=== PATIENT | male | born 1950 | race Caucasian/White ===

== ENCOUNTER 2018-07-31 18:18 | Inpatient (IN) ==
[2018-07-31] MEDS ORDERED: CARDIZEM IV ONE ×3 (19:47→20:32)
[2018-07-31] MEDS ORDERED: ASPIRIN PR ONE (19:54)
[2018-07-31] MEDS ORDERED: NITROGLYCERIN TOP ONE (20:03)
[2018-07-31] MEDS ORDERED: LASIX IV ONE (20:04)
[2018-07-31 20:16] LABS: BASO# 0.04 X1000 (0.0-0.2); BASO% 0.3 % (0.0-0.8); EOS# 0.03 X1000 (0.0-0.7); EOS% 0.2 % (0.0-10.0); HEMATOCRIT 40.9 % (42.0-52.0); HEMOGLOBIN 13.6 g/dL (14.0-18.0); IMM GRAN# 0.13 X1000 (0.0-0.04); IMM GRAN% 0.8 % (0.0-0.5); LYMPH# 1.68 X1000 (1.2-3.4); LYMPH% 10.8 % (20.5-51.1); MCH 28.5 PG (27-31); MCHC 33.3 g/dL (33-37); MCV 85.6 FL (81-99); MONO# 0.25 X1000 (0.11-0.59); MONO% 1.6 % (1.7-9.3); NEUT# 13.43 X1000 (1.4-6.5); NEUT% 86.3 % (42.2-75.2); PLT 414 X1000 (130-400); RBC 4.78 XMIL (4.7-6.1); RDW 13.8 % (11.5-14.5); WBC 15.56 X1000 (4.8-10.8)
--- NOTE | 2018-07-31 20:23 | Diag Imaging Result Doc PS360 ---
CHEST-PORTABLE - 07/31/2018 INDICATION: respiratory distress COMPARISON: None FINDINGS: There is a left-sided dual-chamber pacemaker in good position. Lung volumes are severely low with central crowding. No infiltrates or edema. IMPRESSION: Severely low lung volumes. Electronically signed by Juancho Taylor 07/31/2018 8:21 PM
[2018-07-31 20:42] LABS: POTASSIUM 5.1 mmol/L (3.5-5.1)
[2018-07-31 20:43] LABS: ALB/GLOB RATIO 1.2; ALBUMIN 3.9 g/dL (3.5-5.0); CALCIUM 9.5 mg/dL (8.8-10.2); CREATININE 1.4 mg/dL (0.7-1.2); TOTAL BILIRUBIN 0.84 mg/dL (0.20-1.00); TOTAL PROTEIN 7.1 g/dL (6.3-8.3)
[2018-07-31 21:15] LABS: ALLEN TEST YES; BE 0.5 mmoll (-3.0-3.0); BLOOD TYPE ARTERIAL; HCO3-(ACT) 25.3 mmoll (20.0-26.0); METHB 0.7 % (0.0-1.5); O2(CT) 19.7 mL/dL (15.0-23.0); PCO2(98.6) 41 mmHg (35-45); PO2(98.6) 342 mmHg (60-100); SAMPLE BLOOD; SAO2 97.6 % (95.0-100.0); THB 13.8 g/dL (11.5-17.4)
[2018-07-31 21:16] LABS: MODALITY BI PAP
[2018-07-31] MEDS ORDERED: VANCOMYCIN 1 GM/NS 1 GM/250 ML IVPB IV ONE (21:47)
[2018-07-31 21:53] LABS: UR AMPHETAMINES QUAL NONE DETECTED (NONE DETECT); UR BARBITUATES QUAL NONE DETECTED (NONE DETECT); UR BENZODIAZEPIN QUAL NONE DETECTED (NONE DETECT); UR CANNABINOIDS QUAL NONE DETECTED (NONE DETECT); UR COCAINE QUAL NONE DETECTED (NONE DETECT); UR METHADONE QUAL NONE DETECTED (NONE DETECT); UR OPIATES QUAL PRESUMPTIVE POSITIVE (NONE DETECT); UR OXYCODONE QUAL NONE DETECTED (NONE DETECT); UR PCP QUAL PRESUMPTIVE POSITIVE (NONE DETECT)
[2018-07-31] MEDS ORDERED: NS 1,000 ML IV SCH (22:00)
[2018-07-31] MEDS ORDERED: LEVOPHED 8 MG in D5 1/2 NS 250 ML IV SCH (22:15)
[2018-07-31 22:43] LABS: URINE SOURCE CATH
[2018-07-31] MEDS ORDERED: NEO-SYNEPHRINE 50 MG in NS 250 ML IV SCH (22:45)
[2018-07-31 23:00] LABS: UR EPITHELIAL CELLS <10 /HPF (<10); URINE BACTERIA NEGATIVE /HPF; URINE RBC <10 /HPF (<10); URINE WBC <10 /HPF (<10)
[2018-07-31 23:28] LABS: BILIRUBIN URINE NEGATIVE (NEGATIVE); BLOOD URINE NEGATIVE (NEGATIVE); COLOR YELLOW; GLUCOSE URINE NEGATIVE (NEGATIVE); KETONE URINE NEGATIVE (NEGATIVE); LEUKOCYTES URINE NEGATIVE (NEGATIVE); NITRITE URINE NEGATIVE (NEGATIVE); PH URINE 5.5; PROTEIN URINE NEGATIVE (NEGATIVE); SP GRAVITY URINE 1.011; TURBIDITY URINE CLEAR (CLEAR); UROBILINOGEN URINE 2 mg/dL (NORMAL)
[2018-08-01] MEDS ORDERED: LEVAQUIN 500 MG/D5W 500 MG/100 ML IVPB IV SCH (00:03)
[2018-08-01] MEDS ORDERED: CARDIZEM 100 MG/NS 100 MG/100 ML IVPB IV SCH (00:03)
[2018-08-01] MEDS ORDERED: FLAGYL 500 MG/NS 500 MG/100 ML IVPB IV SCH (00:03)
[2018-08-01] MEDS: LANOXIN IV SCH ×3 (00:40→10:07)
[2018-08-01] MEDS: MERREM 1 GM in NS 50 ML IV SCH ×3 (02:41→17:17)
[2018-08-01] MEDS: CARDIZEM 125 MG/D5W 125 MG/125 ML IVPB IV SCH (02:41)
[2018-08-01] MEDS: NS 1,000 ML IV SCH ×2 (03:52→17:17)
--- NOTE | 2018-08-01 04:20 | HISTORY AND PHYSICAL ---
CHIEF COMPLAINT: Shortness of breath. HISTORY OF PRESENT ILLNESS: This is a 67-year-old gentleman, reported history of CHF and atrial fibrillation, on chronic Xarelto therapy, who comes from home with acute shortness of breath starting today. He has been doing well. He recently had a gallbladder surgery outpatient on 07/21, it was about 10 days ago, and had done well reportedly. Today, came in very short of breath, wheezing, low saturations, reportedly sats of 70% when he first came in on room air, that is what was reported. It says 93% though, but he had increased work of breathing. He had to be put on a BiPAP almost immediately. He is supposed to be on a BiPAP. No reported fevers, chills, or anything as an outpatient, but again, he does have chronic CHF. He is followed by Dr. Moe in [place]. No swelling in his legs. Also reports chest pain, but his cardiac workup is negative at this point. He is currently, when I saw him, on BiPAP and breathing a little bit more comfortably. He is tachycardic in the one-teens to 130s, I saw his high as 140, and chest x-ray was limited because of his tachypnea, did not show any gross infiltrates but was not super well penetrated, but in any case, he has a dual-chamber pacemaker, but it is not pacing or at least is not overdrive pacing. He is still tachycardic. Workup in the ER was otherwise unremarkable, except he did have some leukocytosis. He also complained of chest pain. The patient, treatment [place], initially he was a bit hypertensive and he was tachycardic, so he got 2 doses of Cardizem, 1 at 15, 1 at 20. He also got 40 of Lasix. When I was called to see him, he was still tachycardic, but now he was hypotensive. There is documented blood pressures that are in the 50s systolic. It was closer to high 80s, low 90s when I saw him, but he was still tachycardic, one-teens, 120s. Nitroglycerin I think was ordered but not administered. His blood gas actually looked okay, his PaO2 was 342, and that was on 100%. Creatinine 1.4, but it when it had been checked preop, it was 1.8, so I think he has got some chronic renal insufficiency. He was admitted for respiratory failure, atrial fibrillation with rapid ventricular response, and now developing shock, although possibly that may have been related to some of his medications. PAST MEDICAL HISTORY: 1. Again CHF. 2. Atrial fibrillation. 3. Gout. 4. Hyperlipidemia. 5. Steatohepatitis. He had a recent liver biopsy which did show periportal inflammation; however, it clearly did not describe cirrhosis, and his steatohepatitis was mild. 6. Chronic pain syndrome. 7. Hypothyroidism. 8. Anxiety, depression. 9. Type 2 diabetes, noninsulin dependent. PAST SURGICAL HISTORY: 1. He has had a recent cholecystectomy. 2. He has also had a biliary stent done in June, which is due to come out. FAMILY HISTORY: Reviewed and noncontributory, except father and brothers have had stroke. SOCIAL HISTORY: No tobacco or ethanol. ALLERGIES: Adhesive tape and amoxicillin. REVIEW OF SYSTEMS: Otherwise negative times a 10 point review of systems. PHYSICAL EXAMINATION: VITAL SIGNS: Blood pressure currently 91/45, heart rate of 115, respiratory rate of 23, temperature was afebrile, 98.1 degrees. GENERAL: A well-developed male in moderate distress associated with increased work of breathing. EYE: Pupils equal, round, reactive to light. Extraocular movements were intact. Sclerae are anicteric. EAR/NOSE/THROAT: Limited because of his BiPAP mask, but no lesions or dryness noted. CARDIOVASCULAR: Tachy and irregular. I could not appreciate murmurs, gallops, or rubs. PULMONARY: Bilateral breath sounds. No wheezing, no rales. GASTROINTESTINAL: Soft, nontender, protuberant. Bowel sounds were diminished throughout. His incisions looked clean, dry, intact. NEUROLOGIC: Nonfocal. MUSCULOSKELETAL: 5/5 in all 4 extremities. LYMPHATICS: He had only trace peripheral edema. LABORATORY DATA: White count up to 15, hemoglobin and hematocrit 13 and 40, platelets 414,000. Creatinine 1.4. ProBNP 2254. UDS positive opiates, positive phencyclidine, which I do not really get a sense he is a drug abuser. Chest x-ray was reportedly clear. ASSESSMENT: A 67-year-old male with history of congestive heart failure, atrial fibrillation, here with atrial fibrillation with rapid ventricular response, respiratory failure, and now to some degree shock. 1. Atrial fibrillation with rapid ventricular response. We will initiate digoxin and possibly some Cardizem if his blood pressure tolerates it, get echo, do a couple more serial enzymes. Get Cardiology opinion and follow. 2. Shock, which may be related to medications he has required. Could be developing sepsis. We will continue to monitor. I am reluctant to give him a lot of fluids considering he has some degree of failure at this point, but we have initiated Bertin-Synephrine and maintained his blood pressure, especially with the potential need for intravenous Cardizem. 3. Acute on chronic respiratory failure, likely multifactorial. I have pursued a chest CT. We have to give noncontrast. If we still need to rule out pulmonary embolism, we may want to consider ventilation/perfusion scan. I do not think a D-dimer is going to tell us very much in a postop patient, even though it has only been 10 days. He is also on Xarelto, which he has been taking, so I think that is less likely. We will also scan his abdomen just to make sure he does not have a postop bleed or any issues related to his surgery that could have induced these kinds of processes. 4. Diabetes. Follow blood sugars, sliding scale. Check an A1c and follow. CT scan shows pneumoperitoneum with concern over perforated viscus, he has a biliary stent; which is due to be removed and likely a developing abscess in the gallbladder fossa; will pace on antibiotics and I have called and consulted Dr Tran who is [employer] dean for Dr Quiroz concerning the case. He will likely need urgent surgical intervention. cc: MD Audelia Low MD Matthew L. Figh, MD MTDD
[2018-08-01] MEDS: MORPHINE IV PRN ×4 (04:33→23:43)
[2018-08-01 04:43] LABS: ALLEN TEST YES; BE -1.4 mmoll (-3.0-3.0); BLOOD TYPE ARTERIAL; HCO3-(ACT) 23.8 mmoll (20.0-26.0); METHB 0.6 % (0.0-1.5); O2(CT) 15.2 mL/dL (15.0-23.0); PCO2(98.6) 44 mmHg (35-45); PO2(98.6) 109 mmHg (60-100); SAMPLE BLOOD; THB 11.1 g/dL (11.5-17.4); pH(98.6) 7.35 (7.35-7.45)
[2018-08-01 04:44] LABS: MODALITY VENTIMASK
[2018-08-01 04:56] LABS: BASO# 0.05 X1000 (0.0-0.2); BASO% 0.3 % (0.0-0.8); EOS# 0.02 X1000 (0.0-0.7); EOS% 0.1 % (0.0-10.0); HEMATOCRIT 38.8 % (42.0-52.0); IMM GRAN# 0.09 X1000 (0.0-0.04); IMM GRAN% 0.5 % (0.0-0.5); LYMPH# 0.98 X1000 (1.2-3.4); LYMPH% 5.3 % (20.5-51.1); MCH 28.5 PG (27-31); MCHC 33.5 g/dL (33-37); MCV 85.1 FL (81-99); MONO# 1.34 X1000 (0.11-0.59); MONO% 7.3 % (1.7-9.3); MPV 12.2 FL (7.4-10.4); NEUT# 15.94 X1000 (1.4-6.5); NEUT% 86.5 % (42.2-75.2); PLT 323 X1000 (130-400); RBC 4.56 XMIL (4.7-6.1); RDW 13.7 % (11.5-14.5); WBC 18.42 X1000 (4.8-10.8)
[2018-08-01 05:08] LABS: HEMOGLOBIN A1C 8.3 % (4.8-6.0)
[2018-08-01 05:20] LABS: ALB/GLOB RATIO 0.8; CALCIUM 9.3 mg/dL (8.8-10.2); CREATININE 1.7 mg/dL (0.7-1.2); POTASSIUM 4.4 mmol/L (3.5-5.1); TOTAL BILIRUBIN 1.2 mg/dL (0.20-1.00); TOTAL PROTEIN 6.9 g/dL (6.3-8.3)
[2018-08-01 05:42] LABS: BANDS 10 % (0-1); LYMPHS 5 % (21-51); MONO 1 % (1-9); SEGS 83 % (42-75)
[2018-08-01] MEDS: HUMULIN R SUBQ SCH ×4 (06:17→22:47)
--- NOTE | 2018-08-01 08:05 | Diag Imaging Result Doc PS360 ---
CT ABD/PELVIS W/ORAL CONT ONLY - 07/31/2018 INDICATION: post-op sher/hypotension COMPARISON: 06/04/2018 FINDINGS: The patient is approximately 11 days status post cholecystectomy. Lung volumes are low with some patchy atelectasis or infiltrate bilaterally, right greater than left. There are pacemaker leads in the heart. Heart size is top normal with no pericardial effusion. There is some trace perihepatic free fluid. There is also trace peritoneal free air in the midline and around the liver. There is no free fluid in the pelvis. There certainly less than about 100 cc of free fluid. The common bile duct stent has migrated and is now mostly in the duodenum. There is some pneumobilia. No renal stones or obstruction. No bowel obstruction or inflammation. Chapin catheter in the urinary bladder. Prostate is very atrophic. Rectum is normal. There are bilateral fat-containing inguinal hernias. There are fusion changes of the lumbar spine. There are moderate degenerative changes of the spine. No acute or suspicious bony lesion. IMPRESSION: Indeterminate findings. Very small amount of free air and free fluid should not be present this long after the cholecystectomy. However the source is unclear at this point. The common bile duct stent has also migrated and is nearly completely out of the common duct, most is in the duodenum. The results were discussed with Dr. Gabo Tran on 08/01/2018 at 8:00 AM. This exam was performed using automated exposure control, adjustment of mA or kV according to patient size, and/or use of iterative reconstruction technique Electronically signed by Juancho Taylor 08/01/2018 8:03 AM
--- NOTE | 2018-08-01 08:08 | Diag Imaging Result Doc PS360 ---
CT THORAX W/O CONTRAST - 07/31/2018 INDICATION: lung mass COMPARISON: Prior chest x-ray FINDINGS: There is a left-sided dual-chamber pacemaker in good position. There is extremely dense coronary artery calcification of all of the coronary arteries. Heart size is top normal with no pericardial effusion. No adenopathy. Lung volumes are low. There is nonspecific bibasilar infiltrate or atelectasis right greater than left. No pneumothorax or pleural effusion. There are moderate degenerative changes of the spine. No acute or suspicious bony lesion. No pulmonary edema. IMPRESSION: Nonspecific findings. This exam was performed using automated exposure control, adjustment of mA or kV according to patient size, and/or use of iterative reconstruction technique Electronically signed by Juancho Taylor 08/01/2018 8:06 AM
[2018-08-01] MEDS: ASPIRIN EC PO SCH (08:53)
[2018-08-01] MEDS ORDERED: NS 50 ML ONE (09:24)
[2018-08-01] MEDS ORDERED: DILAUDID IV ONE (09:59)
[2018-08-01 10:19] LABS: ALB/GLOB RATIO 0.8; CALCIUM 8.9 mg/dL (8.8-10.2); CREATININE 1.7 mg/dL (0.7-1.2); POTASSIUM 4.9 mmol/L (3.5-5.1); TOTAL BILIRUBIN 1.28 mg/dL (0.20-1.00); TOTAL PROTEIN 6.7 g/dL (6.3-8.3)
--- NOTE | 2018-08-01 10:30 | GENERAL SURGERY CONSULTATION ---
DATE: 08/01/2018 HISTORY OF PRESENT ILLNESS: Mr. Echevarria is 67 with multiple medical problems, who is 11 days after a laparoscopic cholecystectomy and liver biopsy that was apparently uneventful. Yesterday he developed sudden onset of right upper quadrant pain. He was brought to the emergency department because of those symptoms. He was somewhat tachycardic and even hypertensive, was treated and brought his blood pressure down. Now his rate is controlled as well, but he continues to complain of right upper quadrant pain. A CT scan showed a little bit of fluid around his liver, some spots of free air, and some displacement of his common duct stent distally, even though some of it is still in the common duct. His white count was 15,000; it has gone up to 18,000 today. Continues to complain of right upper quadrant pain necessitating even pain medication. His lactate level has gone from 1.7 to 2.3, BUN up to 31, creatinine up to 1.7 which is a slight elevation. AST is down to 54, ALT is normal, alkaline phosphatase is normal at 109. PAST MEDICAL HISTORY: Pertinent for congestive heart failure, atrial fibrillation with rapid ventricular rate, hyperlipidemia, hypothyroidism, anxiety, depression, type 2 diabetes, and chronic pain syndrome. PAST SURGICAL HISTORY: Previous surgery includes the ERCP and stent placement in June and the cholecystectomy 11 days ago. FAMILY HISTORY: Pertinent for CVA. SOCIAL HISTORY: Denies tobacco, alcohol use. He is , has an attentive . MEDICATIONS: Listed. ALLERGIES: Allergies include Amoxil. REVIEW OF SYSTEMS: As noted above. PHYSICAL EXAMINATION: Vital Signs: Temperature is 99.2 degrees, heart rate 75, blood pressure 111/63. He has an O2 mask in place. Lungs: Bilateral breath sounds. Heart: Irregular rate and rhythm. Abdomen: Soft, but he is tender in the right upper quadrant. Laparoscopy wounds looked normal. Extremities/neurologic: No peripheral edema. He is awake and alert. ASSESSMENT: Acute onset of right upper quadrant pain yesterday. CT findings suggest some fluid around his liver, minimal fluid in his hepatic space, some droplets of free air. I will simply plan a diagnostic laparoscopy due to his change in clinical appearance and his white count. He already has a common duct stent in place, but might benefit from drainage if, in fact, there is a bile leak. We also look at his duodenum to look for possible perforated ulcer. I have discussed these things with he and his ; they understand and agree to proceed. cc: Gabo Tran MD
[2018-08-01] MEDS ORDERED: VANCOMYCIN IV PER PHARMACY MISC SCH (11:00)
[2018-08-01] MEDS ORDERED: LR 1,000 ML ONE (11:09)
[2018-08-01] MEDS ORDERED: MARCAINE 0.25% PF/EPI 1:200,000 ONE (11:09)
--- NOTE | 2018-08-01 11:15 | ECHO REPORT ---
ORDER DATE: 08/01/2018 INTERPRETING PHYSICIAN: Dr. Venkat Bassett ECHOCARDIOGRAPHIC MEASUREMENTS: 1. Interventricular septum: 1.3 cm. 2. Posterior wall: 1.2 cm. 3. Diastolic diameter: 4.0 cm. 4. Left atrium: 5.2 cm. 5. Aortic root: 3 cm. SUMMARY OF THE 2-DIMENSIONAL IMAGIN. Technically suboptimal study. Poor acoustic window. 2. Pacing leads are noted in the right chamber. 3. Aortic valve leaflets were trileaflet, calcified. 4. Mitral valve was normal. Mitral annular calcification noted. 5. Tricuspid valve was normal. 6. Pulmonic valve not well visualized. 7. There is left atrial enlargement, severe. 8. There is mild mitral regurgitation. 9. Mild tricuspid regurgitation. Peak velocity across the tricuspid valve less than 2 m/sec. 10. Peak velocity across the aortic valve was 4.5 m/sec with a peak gradient of 81 mmHg and mean gradient of 50 mm Hg. By VTI, aortic valve area of 0.8 cm2. There is severe aortic stenosis associated with mild aortic regurgitation. 11. I would recommend transesophageal echocardiogram to evaluate the aortic valve. 12. Definity was used to assess left ventricular systolic function. Normal left ventricular cavity size. Concentric left ventricular hypertrophy. Estimated ejection fraction 60 to 65 percent. 13. There is no pericardial effusion or obvious intracardiac mass or thrombus seen. cc: MD Dimitry Painter MD
[2018-08-01] MEDS ORDERED: AMIDATE ONE (12:14)
[2018-08-01] MEDS ORDERED: QUELICIN (DOSE) ONE (12:14)
[2018-08-01] MEDS ORDERED: NORCURON ONE (12:14)
[2018-08-01] MEDS ORDERED: ROBINUL ONE (12:25)
[2018-08-01] MEDS ORDERED: NEOSTIGMINE ONE (12:26)
[2018-08-01] MEDS ORDERED: DILAUDID ONE (12:32)
[2018-08-01] MEDS: DIPRIVAN 1% 1,000 MG/100 ML BOTTLE IV SCH ×3 (13:30→23:31)
--- NOTE | 2018-08-01 13:56 | Diag Imaging Result Doc PS360 ---
CHEST-PORTABLE - 08/01/2018 INDICATION: et placement COMPARISON: 07/31/2018 FINDINGS: There is an endotracheal tube in good position at T2. Lung volumes remain low. No infiltrates or edema. Heart size remains normal. IMPRESSION: Good endotracheal tube placement. Low lung volumes. Electronically signed by Juancho Taylor 08/01/2018 1:53 PM
[2018-08-01 14:29] LABS: ALLEN TEST YES; BE -2.8 mmoll (-3.0-3.0); BLOOD TYPE ARTERIAL; HCO3-(ACT) 22.7 mmoll (20.0-26.0); METHB 0.8 % (0.0-1.5); O2(CT) 16.9 mL/dL (15.0-23.0); O2HB 95.7 % (95.0-99.0); PCO2(98.6) 47 mmHg (35-45); PO2(98.6) 116 mmHg (60-100); SAMPLE BLOOD; SRATE 12 BPM; THB 12.4 g/dL (11.5-17.4); TVOL 500 mL; pH(98.6) 7.31 (7.35-7.45)
[2018-08-01 14:32] LABS: MODALITY VENTILATOR
--- NOTE | 2018-08-01 14:44 | CARDIOLOGY CONSULTATION ---
DATE: 08/01/2018 HISTORY OF PRESENT ILLNESS: Mr. Echevarria is a 67-year-old gentleman who was admitted, is intubated, underwent surgery, a laparoscopic gallbladder surgery, had abscess, and the patient is intubated at the present time. History was obtained from the chart. The patient, 11 days back, had laparoscopic cholecystectomy and liver biopsy. He came in with right upper quadrant pain, was brought to the emergency room. CT scan showed fluid around his liver with free spots of air and patient was taken to surgery. The rest of the history was also obtained from discussing with patient's . Prior to these episodes, from a cardiac standpoint, patient has followed up in our office in [place], did not have any cardiac symptoms per se of chest pain. His chronic cardiac issues have been stable. PAST MEDICAL HISTORY: 1. Aortic stenosis. 2. Atrial fibrillation. 3. Hyperlipidemia. 4. Hypothyroidism. 5. Diabetes. 6. Depression. 7. Chronic pain. 8. Chronic renal insufficiency. 9. Recent ERCP and stent placement in June and cholecystectomy 11 days back. REVIEW OF SYSTEMS: Could not be obtained from the patient. ALLERGIES: Patient is allergic to Amoxil. MEDICATIONS AT HOME: Included: 1. Fenofibrate 160. 2. Losartan 25. 3. Amlodipine 10. 4. Metoprolol extended release 100. 5. Meclizine. 6. Gabapentin 400 p.o. b.i.d. 7. Atorvastatin 40. 8. Tradjenta 5. 9. Lasix 40 a day. 10. Allopurinol 100. 11. Levothyroxine. 12. Xarelto 15. PHYSICAL EXAMINATION: Vital signs: Blood pressure 97/61. Neck: Jugular venous pressure could not be assessed. Cardiovascular system: First and second heart sounds were heard. There was ejection systolic murmur. Respiratory System: Normal air entry. Abdomen: Recent surgery. Central nervous System: Could not be assessed. LABORATORY EXAMINATION: WBC 18.42, hemoglobin 13.0, hematocrit 38, platelet count of 323,000. Chemistry: Sodium 134, potassium 4.9, BUN 35, creatinine 1.7. Cardiac enzymes negative. IMAGING: Chest CT. Dual-chamber pacemaker, calcification in the coronary arteries, otherwise no significant abnormality. Chest x-ray, low lung volumes. ASSESSMENT AND PLAN: 1. Mr. Jorge A Echevarria is a 67-year-old gentleman with history of coronary artery disease status post stent placement in the past, aortic stenosis, permanent pacemaker, atrial fibrillation, hypertension, diabetes, underwent cholecystectomy laparoscopic and underwent emergent surgery for an abscess in the abdomen. From a cardiac standpoint, he has severe aortic stenosis, associated with mild aortic regurgitation. Please see detailed echocardiogram report. 2. He has atrial fibrillation, has been on Xarelto for stroke prophylaxis. 3. He has chronic renal insufficiency, followed by Nephrology in [place]. He was last seen in their office in January in [place]. Per patient's family, his cardiac status was stable. He has not had any chest pains, no syncope or no worsening shortness of breath or heart failure. The patient is currently stable from a cardiac standpoint. We will follow hospital course. He underwent recent surgery, is intubated. We will reinstitute his oral medications once he is extubated. Given his recent surgery, we will restart his home medications except anticoagulation therapy given his recent surgery. Thank you for the consult. We will follow hospital course. cc: Venkat Bassett MD [facility]
--- NOTE | 2018-08-01 15:04 | PROGRESS NOTE ---
DATE: 08/01/2018 SUBJECTIVE: Mr. Echevarria was seen this morning in the ICU bed. He refers to be hurting a lot in the abdomen. Briefly Mr. Echevarria had is a CBD stent placement on 06/21/[address] Roth. Because of the dilated CBD, elevated liver enzymes, was found to have a stricture the distal common bile duct. He also had a laparoscopic cholecystectomy on 07/21/[address] Quiroz. During that surgery, a laparoscopic wedge resection of segment 4 of the liver was also done. I understand he was doing fairly okay until yesterday he had this acute onset of abdominal pain, came to the emergency department where he was evaluated. A CT scan of the abdomen did reveal small amount of free air and free fluid. Free fluid was found at the cholecystectomy site and that the common bile duct stent had migrated to the duodenum. Surgery has been consulted and there is a plan for an exploratory laparotomy today. A CT scan of the lungs shows nonspecific bibasilar infiltrate or atelectasis, right is greater than the left. OBJECTIVE: Vital signs: Blood pressure is currently 111/63, pulse of 75, respiration is 27, temperature is 99.2 degrees. General: Mr. Echevarria is a 67-year-old male. He is in bed. He is not in any cardiopulmonary distress. HEENT: Mucosa is pink and moist. Anicteric. Acyanotic. Neck: Neck is supple. Respiratory: Air entry is bilaterally reduced. There is a few crackles in the posterior lung ferguson. Cardiovascular: Regular rate. No murmurs, no rubs, no gallops. GI: Abdomen is soft, is distended. It is tender everywhere. There is rebound and guarding in the entire abdominal wall. Extremities: No pedal edema. SUPERVISOR SAMPLE: Patient is awake, alert, and oriented. IMAGING STUDIES: Have already been reviewed. An EKG on admission did showed atrial fibrillation with rate control, left axis deviation. ASSESSMENT: 1. Acute abdomen with CT scan referring to some air and fluid. There is concern for bile chemical peritonitis or any other intra-abdominal perforated viscus. Surgery is taking the patient to OR for exploratory laparotomy. 2. Migrated common bile duct stent. This will also be evaluated during surgery and gastroenterology will be consulted as well. 3. Acute on chronic respiratory failure. CT scan does show some bibasilar infiltrate in the right side could be concerning for pneumonia. Patient is currently on meropenem. We will add also vancomycin at renal dose. 2. Chronic kidney disease stage IIIB noted. Creatinine is stable. 3. Atrial fibrillation with rapid ventricular response on presentation. This is controlled. 4. Shock, presumably septic, drug-induced and also atrial fibrillation rapid ventricular response contributing to low perfusion. The patient is currently on IV antibiotics and gentle hydration. Blood pressure has improved. 5. Chronic liver disease, likely steatohepatitis. 6. Diabetes mellitus controlled. So in general Mr. Echevarria will be going for exploratory laparotomy today. Blood pressures have stabilized as well as the pulse. He looks clinically stable. The patient is being seen also by Pulmonary Medicine and Cardiology. cc: Dale Pack MD MTDD
--- NOTE | 2018-08-01 15:29 | PROVIDER DOCUMENTATION ---
This chart was entered by Norah Montez Scribe, acting as scribe for Ba Macias MD. HPI-Chest Pain - General Chief Complaint: Post Op Complaint Stated Complaint: POST OP GB SURG X 2 WEEKS, PAIN IN CHEST, BACK Time Seen by Provider: 07/31/18 19:41 Allergies/Adverse Reactions: Patient Allergies Allergy/AdvReac Type Severity Reaction Status Date / Time adhesive tape Allergy RASH Verified 07/19/18 11:16 amoxicillin Allergy jerking Verified 07/19/18 11:16 motion Home Medications: Home Medication List Medication Instructions Recorded Confirmed Last Taken Type ATORVAstatin [Lipitor] 40 mg PO QHS 10/17/15 08/01/18 07/20/18 22:00 History 40 Amlodipine Besylate 10 mg PO QAM 10/17/15 08/01/18 07/21/18 04:30 History 10 Fenofibrate 160 mg PO QAM 10/17/15 08/01/18 07/20/18 08:00 History 160 Furosemide [Lasix] 40 mg PO DAILY 10/17/15 08/01/18 07/20/18 08:00 History 40 Gabapentin 600 mg PO BID 10/17/15 08/01/18 07/20/18 22:00 History 600 Linagliptin [Tradjenta] 5 mg PO DAILY 10/17/15 08/01/18 07/20/18 08:00 History 5 Losartan [Cozaar] 25 mg PO QAM 10/17/15 08/01/18 07/20/18 08:00 History 25 Meclizine [Antivert] 25 mg PO HS 10/17/15 08/01/18 07/20/18 22:00 History 25 Metoprolol Succinate E.r. [Toprol 100 mg PO BID 10/17/15 08/01/18 07/21/18 04:30 History Xl] 100 Morphine E.r. [Ms Contin] 60 mg PO Q8H PRN 10/17/15 08/01/18 07/20/18 08:00 History 60 Allopurinol 100 mg PO QHS 06/16/18 08/01/18 07/20/18 22:00 History 100 Levothyroxine Sodium [Synthroid] 50 mcg PO QAM 06/16/18 08/01/18 07/20/18 22:00 History 50 Oxycodone HCl 30 mg PO DAILY PRN 06/16/18 08/01/18 07/20/18 08:00 History 30 Rivaroxaban [Xarelto] 15 mg PO QAM 06/16/18 08/01/18 07/15/18 History 15 Venlafaxine HCl [Venlafaxine HCl 1 dose PO DIRECTED 06/16/18 08/01/18 05/ 22:00 History ER] 1 - History of Present Illness-CP Nature of Presenting Problem: pt is a 67 yr old male presenting with left chest pain radiating into left arm, shortness of breath, sweating, irritable and anxious, onset 5 PM. pt recent hx of cholecystectomy 2 weeks prior, cardiac stents x 5, IDDM, Afib. Hx mostly from since pt in moderate distress and hard to focus. charge nurse Be said his SPO2 was in 70s on RA. Location: reports: substernal Chest Pain Radiation: reports: arms (left), back Severity in ED: moderate Onset/Duration: this afternoon (1200) Timing: still present Context/Activities at Onset: reports: light activity Modifying Factors: improves with: nothing Associated Symptoms: reports: back pain, fatigue, nausea, shortness of breath. denies: dizziness, edema, fever/chills, vomiting Nitro Today/Relief: provided by ED Aspirin Treatment Today: 325 mg x 1, provided by ED Similar Symptoms Previously?: Yes Recently Seen Here or By Another Healthcare Provider: Yes Review of Systems - Adult - REVIEW OF SYSTEMS - ADULT Constitutional: denies: chills, fever Cardiovascular: reports: chest pain, irregular heart rate. denies: syncope Respiratory: reports: shortness of breath. denies: cough, wheezing Gastrointestinal: reports: nausea. denies: vomiting Genitourinary: reports: no symptoms reported Musculoskeletal: reports: back pain Neurological: denies: dizziness/vertigo, headache/migraines, syncope Psychiatric: reports: anxiety Endocrine: reports: no symptoms reported Hematologic/Lymphatic: reports: no symptoms reported Past History - Adult - PAST MEDICAL HISTORY-ADULT Review of Records: reports: Old Records Reviewed, Nursing Assessment Review, Medications Reviewed, Social history reviewed & non-contributory. Major Childhood Illnesses: reports: denies history Cardiovascular: reports: A-Fib, CHF, HTN, hyperlipidemia, pacemaker Respiratory: reports: COPD Gastrointestinal: reports: cholelithiasis, GERD Obstetrical/Gynecological: reports: denies history Genitourinary: reports: kidney disease, kidney stones, erectile dysfunction Musculoskeletal: reports: chronic pain, intervertebral disc disease, neck/back injury Neurological: reports: denies history Psychiatric: reports: denies history Endocrine/Immune: reports: Diabetes Other Conditions: reports: denies history - PRIOR SURGERIES/PROCEDURES Surgical/Procedure History: reports: cholecystectomy, cardiac stent (x5), pacemaker - IMMUNIZATION STATUS Childhood Immunizations: See Nurse Assessment Flu Vaccine: See Nurse Assessment - FAMILY HISTORY Family History: reviewed, not pertinent - SOCIAL HISTORY Smoking: non-smoker Substance Use: denies Living Situation: family Physical Exam-General - PHYSICAL EXAM-ADULT Initial Vital Signs Reviewed: Yes - CONSTITUTIONAL General Appearance: moderate distress, obese - EYES Eyes: PERRL/EOMI - HEAD, EARS, NOSE, MOUTH & THROAT HENMT: moist mucous membranes, normal ENT inspection - NECK Neck: full range of motion, supple, normal inspection - RESPIRATORY Respiratory: respiratory distress, crackles (fine crackles bilateral bases), increased rate. negative: wheezing - CARDIOVASCULAR Cardiovascular: tachycardia, irregularly irregular, other (97% on non rebreather) - GASTROINTESTINAL (ABDOMEN) Abdominal Exam: non tender, soft - LYMPHATIC Lymphatic: no adenopathy - MUSCULOSKELETAL Back Exam: normal inspection Extremity: normal range of motion - SKIN Integumentary: normal color, normal turgor, warm/dry - PSYCHIATRIC Psych/Mental Status: anxious, other (confused) - HEART Score HEART Score: History: Moderately Suspicious HEART Score: ECG: Non-Specific Repolarization Disturbance/LBBB/PM HEART Score: Age: > or = 65 Years HEART Score: Risk Factors for Atherosclerotic Disease: > or = 3 Risk Factors or History of Atherosclerotic Disease HEART Score: Troponin: < or = Normal Limit Total HEART Score:: 6 Progress - PLAN OF CARE/RESULTS Progress/Plan/Lab Results: Laboratory Results - last 24 hr 07/31/18 07/31/18 07/31/18 19:48 19:48 19:48 WBC 15.56 H RBC 4.78 Hgb 13.6 L Hct 40.9 L MCV 85.6 MCH 28.5 MCHC 33.3 RDW Std Deviation 13.8 Plt Count 414 H MPV 12.0 H Immature Gran % (Auto) 0.8 H Neut % (Auto) 86.3 H Lymph % (Auto) 10.8 L Glascock % (Auto) 1.6 L Eos % (Auto) 0.2 Baso % (Auto) 0.3 Immature Gran # (Auto) 0.13 H Neut # (Auto) 13.43 H Lymph # (Auto) 1.68 Glascock # (Auto) 0.25 Eos # (Auto) 0.03 Baso # (Auto) 0.04 Specimen Type Sample Site pH pCO2 pO2 HCO3 Base Excess Oxyhemoglobin ABG O2 Sat (Calculated) ABG O2 Saturation ABG Carboxyhemoglobin ABG Methemoglobin Sridhar Test A-a O2 Difference Total Hemoglobin Lactate Blood Gas Modality Vent Mode FiO2 % Inspiratory BiPAP Expiratory BiPAP Sodium 134 L Potassium 5.1 Chloride 93 L Carbon Dioxide 25 Anion Gap 16 BUN 25 H Creatinine 1.4 H Estimated GFR/1.73 m2 51 BUN/Creatinine Ratio 18 Glucose 183 H POC Glucose Calculated Osmolality 277 Calcium 9.5 Total Bilirubin 0.84 AST 77 H ALT 40 Alkaline Phosphatase 157 H Troponin T < 0.010 [id number] Pept Total Protein 7.1 Albumin 3.9 Globulin 3.2 Albumin/Globulin Ratio 1.2 Plasma Lactate Urine Source Urine Color Urine Turbidity Urine pH Ur Specific Felt Urine Protein Ur Glucose (Stick) Ur Ketones (Stick) Urine Blood Urine Nitrite Urine Bilirubin Urobilinogen Dipstick Urine Leukocytes Urine WBC (Auto) Urine RBC (Auto) U Epithel Cells (Auto) Urine Bacteria (Auto) Urine Opiates Screen Ur Oxycodone Screen Ur Methadone, Qual Ur Barbiturates Screen Ur Phencyclidine Scrn Ur Amphetamines Screen U Benzodiazepines Scrn Urine Cocaine Screen U Cannabinoids Screen 07/31/18 07/31/18 07/31/18 19:48 19:48 20:13 WBC RBC Hgb Hct MCV MCH MCHC RDW Std Deviation Plt Count MPV Immature Gran % (Auto) Neut % (Auto) Lymph % (Auto) Glascock % (Auto) Eos % (Auto) Baso % (Auto) Immature Gran # (Auto) Neut # (Auto) Lymph # (Auto) Glascock # (Auto) Eos # (Auto) Baso # (Auto) Specimen Type Sample Site pH pCO2 pO2 HCO3 Base Excess Oxyhemoglobin ABG O2 Sat (Calculated) ABG O2 Saturation ABG Carboxyhemoglobin ABG Methemoglobin Sridhar Test A-a O2 Difference Total Hemoglobin Lactate Blood Gas Modality Vent Mode FiO2 % Inspiratory BiPAP Expiratory BiPAP Sodium Potassium Chloride Carbon Dioxide Anion Gap BUN Creatinine Estimated GFR/1.73 m2 BUN/Creatinine Ratio Glucose POC Glucose 166 H Calculated Osmolality Calcium Total Bilirubin AST ALT Alkaline Phosphatase Troponin T [id number] Pept 2254 H Total Protein Albumin Globulin Albumin/Globulin Ratio Plasma Lactate 2.8 H Urine Source Urine Color Urine Turbidity Urine pH Ur Specific Felt Urine Protein Ur Glucose (Stick) Ur Ketones (Stick) Urine Blood Urine Nitrite Urine Bilirubin Urobilinogen Dipstick Urine Leukocytes Urine WBC (Auto) Urine RBC (Auto) U Epithel Cells (Auto) Urine Bacteria (Auto) Urine Opiates Screen Ur Oxycodone Screen Ur Methadone, Qual Ur Barbiturates Screen Ur Phencyclidine Scrn Ur Amphetamines Screen U Benzodiazepines Scrn Urine Cocaine Screen U Cannabinoids Screen 07/31/18 07/31/18 07/31/18 21:00 21:22 21:22 WBC RBC Hgb Hct MCV MCH MCHC RDW Std Deviation Plt Count MPV Immature Gran % (Auto) Neut % (Auto) Lymph % (Auto) Glascock % (Auto) Eos % (Auto) Baso % (Auto) Immature Gran # (Auto) Neut # (Auto) Lymph # (Auto) Glascock # (Auto) Eos # (Auto) Baso # (Auto) Specimen Type ARTERIAL Sample Site R RADIAL pH 7.40 pCO2 41 pO2 342 H HCO3 25.3 Base Excess 0.5 Oxyhemoglobin 97.0 ABG O2 Sat (Calculated) 19.7 ABG O2 Saturation 97.6 ABG Carboxyhemoglobin 0.00 L ABG Methemoglobin 0.7 Sridhar Test YES A-a O2 Difference 320.0 Total Hemoglobin 13.8 Lactate 1.70 Blood Gas Modality BI PAP Vent Mode BIPAP FiO2 % 100.0 Inspiratory BiPAP 16.0 Expiratory BiPAP 6.0 Sodium Potassium Chloride Carbon Dioxide Anion Gap BUN Creatinine Estimated GFR/1.73 m2 BUN/Creatinine Ratio Glucose POC Glucose Calculated Osmolality Calcium Total Bilirubin AST ALT Alkaline Phosphatase Troponin T Ztm-R-Dumqfstsfic Pept Total Protein Albumin Globulin Albumin/Globulin Ratio Plasma Lactate Urine Source CATH Urine Color YELLOW Urine Turbidity CLEAR Urine pH 5.5 Ur Specific Felt 1.011 Urine Protein NEGATIVE Ur Glucose (Stick) NEGATIVE Ur Ketones (Stick) NEGATIVE Urine Blood NEGATIVE Urine Nitrite NEGATIVE Urine Bilirubin NEGATIVE Urobilinogen Dipstick 2 A Urine Leukocytes NEGATIVE Urine WBC (Auto) <10 Urine RBC (Auto) <10 U Epithel Cells (Auto) <10 Urine Bacteria (Auto) NEGATIVE Urine Opiates Screen PRESUMPTIVE POSITIVE A Ur Oxycodone Screen NONE DETECTED Ur Methadone, Qual NONE DETECTED Ur Barbiturates Screen NONE DETECTED Ur Phencyclidine Scrn PRESUMPTIVE POSITIVE A Ur Amphetamines Screen NONE DETECTED U Benzodiazepines Scrn NONE DETECTED Urine Cocaine Screen NONE DETECTED U Cannabinoids Screen NONE DETECTED Orders Category Date Time Status Admit - [facility] Routine AdmDCTranf 08/01/18 00:03 Active Activity - Up with Assistance ORDERED Care 08/01/18 00:03 Active Call Provider ROUTINE Care 07/31/18 23:05 Active Intake and Output-Strict ORDERED Care 08/01/18 00:03 Active Nursing- MD Consult Request ROUTINE Care 08/01/18 00:03 Completed Vital Signs Order Q 4-HR ASSESS Care 08/01/18 00:03 Active Z-Document. for Tele Applied ORDERED Care 08/01/18 00:03 Completed MD [Physician/Provider Consults] Routine Cons 08/01/18 00:[address] ABD/PELVIS W/ORAL CONT ONLY [CT] Routine Exams 07/31/18 22:[address] THORAX W/O CONTRAST [CT] Routine Exams 07/31/18 22:54 Completed cxr [CHEST-PORTABLE] [RAD] Stat Exams 07/31/18 19:46 Completed ABG [RESP] Routine Lab 07/31/18 21:00 Completed BLOOD CULTURE [BLDCUL] Stat Lab 07/31/18 19:48 Results BNP [PRO B-NATRIURETIC PEPTIDE] Stat Lab 07/31/18 19:48 Completed CBC WITH DIFF [HEME] Routine Lab 08/01/18 04:49 Completed CBC WITH ELECTRONIC DIFF [HEME] Stat Lab 07/31/18 19:48 Completed CMP [COMPREHENSIVE METABOLIC PANEL] [CHEM] Stat Lab 07/31/18 19:48 Completed COMPREHENSIVE METABOLIC PANEL [CHEM] Routine Lab 08/01/18 04:49 Completed LACTATE, PLASMA [CHEM] Stat Lab 07/31/18 19:48 Completed TROPONIN T Stat Lab 07/31/18 19:48 Completed TSH Routine Lab 08/01/18 04:49 Completed URINALYSIS W/POSS RFLX CULT [URINALYSIS] Stat Lab 07/31/18 21:22 Completed URINE DRUG SCREEN Stat Lab 07/31/18 21:22 Completed 0.9% Sodium Chloride Inj [Ns] 1,000 ml Med 07/31/18 22:00 Discontinued IV 300 mls/hr 0.9% Sodium Chloride Inj [Ns] 250 ml Med 07/31/18 22:45 Active Phenylephrine [Bertin-Synephrine] 50 mg IV As Directed mls/hr Aspirin Med 07/31/18 19:54 Discontinued 300 mg HI NOW ONE Dextrose 5%-0.45% NaCl Inj [D5 1/2 Ns] 250 ml Med 07/31/18 22:15 Discontinued Norepinephrine [Levophed] 8 mg IV As Directed mls/hr Digoxin [Lanoxin] Med 07/31/18 23:00 Discontinued 250 microgm IV Q6H Diltiazem 100 mg/Ns [Cardizem 100 mg/Ns] Med 08/01/18 00:03 Discontinued 100 mg in 100 ml IV As Directed mls/hr Diltiazem [Cardizem] Med 07/31/18 19:47 Discontinued 15 mg IV NOW ONE Diltiazem [Cardizem] Med 07/31/18 19:53 Discontinued 15 mg IV NOW ONE Diltiazem [Cardizem] Med 07/31/18 20:32 Discontinued 20 mg IV NOW ONE Furosemide [Lasix] Med 07/31/18 20:04 Discontinued 40 mg IV NOW ONE Nitroglycerin Med 07/31/18 20:03 Discontinued 1 inch TOP NOW ONE Vancomycin 1 gm/Ns Med 07/31/18 21:47 Discontinued 1 gm in 250 ml IV NOW BIPAP Stat Oth 07/31/18 20:04 Active Telemetry [OM.EQ] Routine Oth 08/01/18 00:03 Active EKG [EKG] Stat Ther 07/31/18 19:47 Ordered Transfer/Admit Order [TRANSFER] Routine Transfer 07/31/18 22:40 Completed Patient in respiratory distress, Bipap ordered and pt improved. initially he was slightly confused but Mental status improved with Bipap. chest pain with the cardiac Hx is suspicious for cardiac event Aspirin ordered. A fiv with RVR could cause this but his HR improved to 90s to early 100 after 2 doses of cardizem. pt with elevated WBC and Lactate no source of infection identified for now, I started pt on Vanc and gentle fluid. I reassessed pt Multiple times throughout the ER stay and pt was improving clinically. BP dropped to 90s/50s-60s likely from Cardizem Dr. Ayala request to start NE. Pt care, assessment and plan discussed with the attending physician Dr. Graves and she agree with the plan as documented. Pt aslo seen and examined by Dr. Graves. Result Diagrams: 08/01/18 04:49 08/01/18 09:38 - REASSESSMENT Reassessment #1 Time Reassessed: 20:16 Status: unchanged Reassessment #2 Time Reassessed: 20:35 Status: unchanged Reassessment #3 Time Reassessed: 20:51 Status: improving (with Bipap) Reassessment #4 Time Reassessed: 21:21 Status: improving (With Bipap) - EKG 1 Time of EKG reading by physician:: 19:00 EKG Read and Signed by:: Ba Will EKG Interpretation (*Must complete 3 of following elements*): Abnormal (anterior infarct-age undetermined) Rate: 101 Rhythm: afib with RVR [place]: left - XRAY 1 XRAY Study: Chest Impression: Abnormal ( CHEST-PORTABLE - 07/31/2018 INDICATION: respiratory distress COMPARISON: None FINDINGS: There is a left-sided dual-chamber pacemaker in good position. Lung volumes are severely low with central crowding. No infiltrates or edema. IMPRESSION: Severely low lung volumes. Electronically signed by Juancho Taylor 07/31/2018 8:21 PM 07/31/182020 Interpreting Physician: Juancho Taylor MD Dictated Date/Time: 07/31/182019 cc: Ba Will MD; Audelia Newman MD) Comparison with other Films: no prior study - CONSULTS/PCP/HOSPITALIST Notification #1 *Consult/PCP/Hospitalist*: Dr. Ayala Time Discussed: 22:01 Consult Disposition: Admit (Hx, PE and pt care discussed with Dr. Ayala in the ER. Dr. Ayala request NE drip due to low BP 90s/late 50s.) Departure - Departure Date of Disposition Decision: 07/31/18 Time of Disposition Decision: 22:11 DIAGNOSIS: Atrial fibrillation with RVR Chest pain Qualifiers: Chest pain type: unspecified Qualified Code(s): R07.9 - Chest pain, unspecified Respiratory failure Qualifiers: Chronicity: acute on chronic Respiratory failure complication: hypoxia Qualified Code(s): J96.21 - Acute and chronic respiratory failure with hypoxia Disposition: ADMITTED INPATIENT 09 Certified Medical Emergency: Emergent Condition: Critical - Critical Care Note This patient required my direct & personal management of CC.: Yes Total Time (mins): 60 Critical Care Statement: This patient required my direct personal management to treat or rule out processes, the absence of which, could potentiallly result in sudden, clinically significant life or limb threatening deterioration. Attestation - Physician/ JW Attestation Patient care was provided by Advanced Practice Provider:: No The physician spent face to face time with patient:: Yes Advanced Practice Provider documentation review:: Supervising physician onsite and consulted in the evaluation and care of this patient. The physician did have a face to face encounter with the patient. This chart was documented by the indicated scribe, (Norah Montez Scribe) and accurately reflects the services I performed and decisions made by me, Ba Will MD, as attested by the provider's signature.
[2018-08-01] MEDS ORDERED: NS 1,000 ML IV ONE (17:01)
[2018-08-01] MEDS ORDERED: VANCOMYCIN 1,500 MG in NS 250 ML IV SCH (18:00)
--- NOTE | 2018-08-01 18:50 | PULMONOLOGY CONSULTATION ---
DATE: 08/01/2018 REASON FOR CONSULTATION: Respiratory failure. HISTORY OF PRESENT ILLNESS: Mr. Echevarria is a 67-year-old white male, never smoker, who underwent a stent placement in his common bile duct approximately 3 weeks ago followed by a cholecystectomy 07/21/2018. The patient's reports he did well following that procedure but prior to coming to the emergency room developed acute abdominal pain and increased work of breathing. He presented to the emergency room for additional evaluation and management. Chest x-ray revealed shallow inspiration without definite infiltrates. CT scan of the abdomen and pelvis was performed which revealed free air in the midline and around the liver along with some pneumobilia. Previous stent had migrated nearly completely out of the common bile duct into the duodenum. CT scan of the thorax was performed which revealed low lung volumes along with bibasilar atelectasis/infiltrate right greater than left. He has been evaluated by General Surgery and exploratory laparoscopy is planned today. PAST MEDICAL HISTORY: 1. Coronary artery disease with prior stenting x4. 2. Status post biliary stent as per above. 3. Steatohepatitis. 4. Atrial fibrillation. 5. Status post pacemaker placement. 6. Severe aortic stenosis. 7. Recent cholecystectomy as per above. 8. Atrial fibrillation. 9. Hypothyroidism. 10. Chronic pain syndrome. 11. Obesity. 12. Type 2 diabetes mellitus. 13. Chronic renal insufficiency. SOCIAL HISTORY: The patient is a never smoker. No alcohol use listed. FAMILY HISTORY: Positive for strokes. REVIEW OF SYSTEMS: As noted in the HPI but is otherwise negative. PHYSICAL EXAMINATION: General: Reveals a obese white male currently resting comfortably on Venturi mask. Blood pressure 97/61, heart rate 85, respiratory rate 28 and shallow, oxygen saturation 96%. He has been afebrile during this hospitalization. HEENT: Pupils are equal and reactive. Oropharynx is clear. Neck: Supple. Chest: Reveals shallow breath sounds bilaterally with bibasilar crackles. Cardiac: Irregular, irregular rhythm. Abdomen: Mildly distended. He is tender to palpation and percussion with some guarding noted. Extremities: Without edema. LABORATORIES: Arterial blood gas this morning on 50% face mask, pH 7.35, pCO2 of 44, PO2 of 109. Sodium 134, potassium 4.9, chloride 96, bicarbonate 21, BUN 35, creatinine 1.7. White blood count 18.4 thousand, hemoglobin 13.0, platelet count 323,000. IMPRESSION: 67-year-old never smoker with 1. Acute hypoxemic respiratory failure. 2. Bibasilar atelectasis. 3. Acute abdomen with splinting. 4. Leukocytosis. 5. Chronic renal insufficiency. 6. Obesity. 7. Diabetes mellitus. RECOMMENDATIONS: 1. Agree with current antibiotic regimen. Although basilar infiltrates may be atelectasis, cannot completely rule out a pneumonia. Current antibiotic regimen should be adequate. 2. Continue oxygen for hypoxemic respiratory failure. 3. Continue pain control. 4. Initiate incentive spirometry. 5. Anticipate laparoscopy today. cc: Zi Duarte MD
--- NOTE | 2018-08-01 20:27 | OPERATIVE NOTE ---
PROCEDURE DATE: 08/01/2018 PROCEDURE: 1. Diagnostic laparoscopy with placement of subhepatic drain. 2. Drainage of subhepatic fluid collection. SURGEON: Gabo Tran MD PRECISION HONER: PREOPERATIVE DIAGNOSES: 1. Acute right upper quadrant pain. 2. Leukocytosis. 3. Subhepatic fluid collection. 4. Possible bile leak. 5. Possible perforated ulcer. POSTOPERATIVE DIAGNOSES: 1. Acute right upper quadrant pain. 2. Leukocytosis. 3. Subhepatic fluid collection. 4. Possible bile leak. 5. Possible perforated ulcer. There was no evidence of perforated ulceration. There was a fluid collection present. DESCRIPTION OF PROCEDURE: After satisfactory general endotracheal anesthesia, the abdomen was prepped and draped in a sterile fashion. We anesthetized the skin below the umbilicus at the old incision and incised the incision. We then dissected the fascia, scored the fascia and introduced an 11 trocar Optiview technique. We insufflated through this trocar. Under direct visualization, we introduced a 5 trocar in midclavicular line at the site of the old trocar, another 5 trocar in the anterior axillary line at the site of the old trocar, and an 11 mm trocar in the midepigastrium. We placed the patient in reverse Trendelenburg. Upon entering the abdominal cavity, there was quite a bit of exudate noted on the omentum. In the right gutter and above the liver there was bilious fluid. There were adhesions to the right lateral abdominal wall from the inflammatory process. We placed the patient in reverse Trendelenburg. I had to add an additional trocar in the right midabdomen in order to place a fan, in order to try to retract the omentum caudad in order to see the subhepatic space. After dissecting this omentum away from the liver, we did get into the gallbladder fossa, where there was a collection of fluid that we aspirated. The gallbladder fossa had purulent exudate scattered throughout it. I attempted to inspect the duodenum. It was stuck to the point that I could not really see the duodenum. The anterior stomach all the way to near the pylorus appeared normal. I did not see any evidence of bowel perforation, but the omentum was stuck over the anterior duodenum to the point that I could not dissect it out adequately laparoscopically. Based on the appearance of the gallbladder fossa and the bilious fluid in the right gutter, however, I felt that most likely all the fluid originated from the operation for the gallbladder itself, and there was no new perforation of the GI tract. After copious irrigation and removal of the exudate with the forceps, I then introduced a Oswaldo drain and placed it in the subhepatic space, bringing it out the anterior axillary line trocar site. It was secured to the skin with 2- 0 silk. We then did not feel that any further resection was indicated or evaluation was indicated. We then used a Chicho-Raymond wound closure for the epigastric trocar, the right midabdomen trocar and the umbilical trocar. We then desufflated. Additional 2-0 Polysorb stitches were placed at the umbilicus in the epigastrium. We then closed the skin at each incision with 4-0 Polysorb subcuticular stitches. Sterile OpSite were applied. He tolerated it well and was sent to the recovery room in satisfactory condition. cc: Gabo Tran MD MTDD
[2018-08-02] MEDS: MERREM 1 GM in NS 50 ML IV SCH ×3 (01:54→16:24)
[2018-08-02] MEDS: DIPRIVAN 1% 1,000 MG/100 ML BOTTLE IV SCH ×4 (04:03→21:00)
[2018-08-02] MEDS: MORPHINE IV PRN ×3 (04:15→16:24)
[2018-08-02 04:57] LABS: ALLEN TEST YES; BE -2.1 mmoll (-3.0-3.0); BLOOD TYPE ARTERIAL; HCO3-(ACT) 23.2 mmoll (20.0-26.0); METHB 0.3 % (0.0-1.5); O2HB 95.1 % (95.0-99.0); PCO2(98.6) 36 mmHg (35-45); PO2(98.6) 78 mmHg (60-100); SAMPLE BLOOD; SAO2 96.3 % (95.0-100.0); SRATE 12 BPM; THB 11.9 g/dL (11.5-17.4); TVOL 500 mL
[2018-08-02 04:58] LABS: MODALITY VENTILATOR
[2018-08-02 05:09] LABS: BASO# 0.05 X1000 (0.0-0.2); BASO% 0.3 % (0.0-0.8); EOS# 0.02 X1000 (0.0-0.7); EOS% 0.1 % (0.0-10.0); HEMATOCRIT 35.5 % (42.0-52.0); HEMOGLOBIN 11.8 g/dL (14.0-18.0); IMM GRAN# 0.18 X1000 (0.0-0.04); LYMPH# 1.03 X1000 (1.2-3.4); LYMPH% 5.8 % (20.5-51.1); MCH 28.4 PG (27-31); MCHC 33.2 g/dL (33-37); MCV 85.5 FL (81-99); MONO% 6.8 % (1.7-9.3); MPV 12.4 FL (7.4-10.4); NEUT# 15.15 X1000 (1.4-6.5); PLT 279 X1000 (130-400); RBC 4.15 XMIL (4.7-6.1); RDW 13.9 % (11.5-14.5); WBC 17.63 X1000 (4.8-10.8)
[2018-08-02 05:12] LABS: ALB/GLOB RATIO 0.6; ALBUMIN 2.4 g/dL (3.5-5.0); CALCIUM 8.3 mg/dL (8.8-10.2); CREATININE 1.4 mg/dL (0.7-1.2); POTASSIUM 4.5 mmol/L (3.5-5.1); TOTAL BILIRUBIN 0.73 mg/dL (0.20-1.00); TOTAL PROTEIN 6.1 g/dL (6.3-8.3)
[2018-08-02] MEDS: NS 1,000 ML IV SCH ×3 (06:05→21:00)
[2018-08-02 06:06] LABS: LYMPHS 8 % (21-51); MONO 7 % (1-9); SEGS 85 % (42-75)
[2018-08-02] MEDS: HUMULIN R SUBQ SCH ×4 (06:07→21:24)
--- NOTE | 2018-08-02 07:48 | Diag Imaging Result Doc PS360 ---
CHEST-PORTABLE - 08/02/2018 INDICATION: abnormal exam COMPARISON: 08/01/2018 FINDINGS: Stable endotracheal tube in good position. Stable left-sided pacemaker. Little change in the patchy atelectasis or infiltrate in the lung bases. Stable low lung volumes. Stable mild cardiomegaly. IMPRESSION: No change from prior. Electronically signed by Juancho Taylor 08/02/2018 7:46 AM
--- NOTE | 2018-08-02 08:10 | GENERAL SURGERY PROGRESS NOTE ---
DATE: 08/02/2018 Postop day 1 after laparoscopy with drainage of subhepatic fluid collection. His temperature this morning is 99.7, heart rate 110 and irregular, blood pressure 125/76. He is on Cardizem. His drain output is 140 mL. It is serous primarily. His white count is 17,600, hemoglobin 11.8, hematocrit 35. Gases, pH 7.4, pCO2 36, PO2 78, base deficit is 2.1. He is on the ventilator. BUN 36, creatinine 1.4. Total bilirubin is 0.73, AST 79, ALT 32, alkaline phosphatase 93. ASSESSMENT: He is doing satisfactorily post laparoscopy. Hopefully, he can come to extubation today. Of note is a gram-positive coccus blood culture. cc: Gabo Tran MD
[2018-08-02] MEDS: ASPIRIN EC PO SCH (08:27)
--- NOTE | 2018-08-02 09:38 | PROGRESS NOTE ---
DATE: 08/02/2018 SUBJECTIVE: This morning, Mr. Echevarria is intubated. Tolerating the ventilator well. was at the bedside. Mr. Echevarria underwent diagnostic laparoscopy with placement of subhepatic drain yesterday with Dr. Tran. I understand that over the course of last night, the patient went into atrial fibrillation RVR and had to be started on Cardizem drip. The patient has already being seen by Cardiology. OBJECTIVE: Vital Signs: Current vital signs are blood pressure 113/69, pulse of 113, respirations 18, temperature was 99.5 degrees. The patient did have a mild temperature of 100.5 degrees yesterday at 23:30. General: Mr. Echevarria is a 67-year-old male. He is in bed. He is currently intubated and sedated on propofol. HEENT: Mucosa is pink and moist. Anicteric. Acyanotic. Neck: Neck is supple. Chest: Good air entry bilateral. There are some transmitted sounds from the ventilator. Cardiovascular: Regular rate and rhythm. Abdomen: Soft. It is distended. It seems to be still operator whiskey. Patient grimaced to palpation. There is a MARIELLA drain at the right upper quadrant. Extremities: No pedal edema. There is a Chapin catheter in place. Neurologic: The patient grimaced to painful stimulation. LABORATORY DATA: WBC is 17.63, hemoglobin is 11.8, platelet count of 279,000. Chemistry is also reviewed. Sodium is 132. Creatinine is down to 1.4 from 1.7 yesterday. So far blood cultures are showing gram-positive cocci. DIAGNOSTIC STUDIES: A chest x-ray this morning shows stable endotracheal tube in position, the left-sided pacemaker, little change in atelectasis or infiltrates in the lung bases. ASSESSMENT: 1. Acute abdomen status post diagnostic laparoscopy with placement of subhepatic drain. It appears patient had some purulent exudate around the gallbladder fossa which was aspirated during surgery. There is a suspicion that he could have a bile leak. 2. Septic shock on presentation with blood cultures now growing gram-positive cocci 2/2 in the blood culture. The patient is currently on adequate antimicrobial therapy. Will be pending the ID and sensitivity on that GPC. We will also get Infectious Disease to evaluate the patient and advise on the antimicrobial therapy. 3. Atrial fibrillation with rapid ventricular response. Patient is currently on Cardizem drip. Cardiology is on board. 4. Acute on chronic kidney failure. Creatinine is down to 1.4 today. We will continue to observe this. Dose every medication renally and also avoid any nephrotoxins. 5. Migrated common bile duct stent into duodenum. GI, Dr. Roth, will be notified tomorrow. 6. Chronic liver disease likely steatohepatitis as per the liver biopsy. 7. Diabetes mellitus. We will continue with insulin therapy. 8. Respiratory failure after abdominal surgery. Patient is currently intubated. Pulmonary Medicine has been consulted and will be pending their further recommendation and timing for extubation. PLAN: In general, I think Mr. Echevarria is fairly stable, still critically sick. His blood culture positive for GPC in both. The patient is currently on meropenem and vancomycin, and we will consult Infectious Disease. We will also notify Dr. Bravo tomorrow about the common bile duct stent migration. Mr. Echevarria is being seen by Cardiology, Pulmonary Medicine and Surgery as well. We do appreciate their input in the management of this complicated patient. cc: Dale Pack MD
[2018-08-02] MEDS ORDERED: MORPHINE ONE (10:26)
[2018-08-02] MEDS ORDERED: MORPHINE IV ONE (10:47)
[2018-08-02] MEDS ORDERED: ZOFRAN IV PRN (10:58)
--- NOTE | 2018-08-02 11:47 | PULMONOLOGY PROGRESS NOTE ---
DATE: 08/02/2018 SUBJECTIVE: The patient sedation was held until he was awake and alert and could follow commands. OBJECTIVE: Vital Signs: Maximum temperature last 24 hours, 100.5 degrees, blood pressure 108/62, heart rate 104, respiratory rate 19, oxygen saturation 95%. HEENT: Pupils are equal and reactive. Oropharynx is clear. Neck: Supple. Chest: Reveals coarse crackles bilaterally. Cardiac: S1-S2. Abdomen: Soft with tenderness on exam. Extremities: Without edema. LABORATORIES: Blood cultures reveal 2/2 cultures, which were positive for gram-positive cocci. White blood count 17.6, hemoglobin 11.8, platelet count 279,000. Arterial blood gas: PH 7.40, pCO2 of 36, PO2 of 78, on 60% FiO2. Sodium 132, potassium 4.5, chloride 97, bicarbonate 22, BUN 36, creatinine 1.4. IMAGING: Chest x-ray reveals shallow inspiration with mild bibasilar infiltrates. IMPRESSION: A 67-year-old with: 1. Acute hypoxemic respiratory failure. 2. Acute abdomen, status post surgical drainage. 3. Bacteremia. 4. Bibasilar pneumonia. 5. Chronic renal insufficiency. 6. Leukocytosis. 7. Obesity. 8. Diabetes mellitus. DISCUSSION: A 67-year-old with problems outlined above. The patient failed a spontaneous breathing trial due to an elevated rapid shallow breathing index. RECOMMENDATION: 1. Continue ventilatory support with daily weaning attempts. 2. Continue antibiotics for his gram-positive bacteremia. 3. Increased pain control. 4. Continue sedation. TIME SPENT: Critical care management: 30+ minutes. cc: Zi Duarte MD
[2018-08-02] MEDS: CUBICIN 500 MG in NS 100 ML IV SCH (13:05)
--- NOTE | 2018-08-02 14:41 | INFECTIOUS DISEASE CONSULT REP ---
DATE: 08/02/2018 CONCLUSION: The patient has a gram-positive coccal bacteremia. I suspect it could be due to an enterococcus or, less likely, a staphylococcus. I think that it somehow involves the biliary system. The patient's renal function has deteriorated a little bit. His creatinine now is 1.4 and GFR is 51. RECOMMENDATIONS: I agree with treating the patient with meropenem. I have discontinued vancomycin because of the patient's slight increase in the creatinine and decrease in the GFR. Instead, I have ordered daptomycin. I have ordered to send the fluid coming back in the drain for culture. The patient will require 6 weeks of antibiotic treatment because he has metal in his back, a pacemaker, and stents which could have become infected hematogenously. DISCUSSION: The patient was unable provide a history. He is intubated and sedated. The history I obtained was from the patient's . The patient had a laparoscopic cholecystectomy and approximately 2 days ago, he began having chills, abdominal pain, chest pain, and arm pain. He also was febrile. Last night, he went to surgery, performed by Dr. Tran, who found a subhepatic fluid, possible bile leak, and a possible perforated ulcer. The patient, approximately a month ago, had a bile duct stent placed. On laboratory studies, the patient's CBC shows a white count of 17,630, hemoglobin 11.8, and platelet count of 279,000. Blood gases have a pH of 7.4, a PO2 of 78, and a pCO2 of 36. Creatinine is 1.4. GFR is 51. AST is 79. Urinalysis showed no white cells or bacteria. The chest x-ray shows bibasilar atelectasis and possible infiltrate. Echocardiogram showed no vegetation or pericardial effusion. The patient's blood cultures are growing gram-positive cocci. PAST MEDICAL HISTORY/REVIEW OF SYSTEMS: This was not able to be obtained from the patient. When I asked the about her 's health, she told me that he did not have any problem hearing or seeing. He was not coughing. He was not having chest pain except for the 2 days ago. He was not having abdominal pain. He was passing his urine and his bowel movements okay. He was not having any joint problems or muscle aching. PREVIOUS HOSPITALIZATIONS AND OPERATIONS: He has had placement of coronary artery stent. Approximately a month ago, he had placement of a bile duct stent. He has a pacemaker present in the left chest. He has had a laminectomy at which time metal was placed in his lumbar spine. He has had bilateral carpal tunnel surgeries. MEDICAL DISEASES: Positive for diabetes mellitus, obesity, atrial fibrillation, congestive heart failure, end-stage renal disease, hyperlipidemia, and atrial fibrillation, gout, hyperlipidemia, and hypothyroidism. INFECTIOUS DISEASE HISTORY: Negative for pneumonia and UTI. FAMILY HISTORY: Positive for diabetes mellitus, hypertension, myocardial infarction, stroke, and cancer. SOCIAL HISTORY: [place] He is disabled due to his back. He has a dog as a pet. He does not smoke cigarettes, drink alcoholic beverages, or abuse drugs. ALLERGIES: He had an allergy to amoxicillin which the patient's told me he had some twitching and jumping. The patient is also allergic to adhesive tape. HOME MEDICATIONS: Include the following: Allopurinol, amlodipine, Lipitor, fenofibrate, Lasix, gabapentin, Synthroid, linagliptin, losartan, meclizine, metoprolol, morphine, oxycodone, Xarelto, and venlafaxine. PHYSICAL EXAMINATION: Vital Signs: Temperature was 101 degrees. It is 100 now. Pulse 109, respirations 34, blood pressure is 125/68, patient weighs 195 pounds. General: This is an obese, elderly male. He is intubated and sedated. Head, Eyes, Ears, Nose, and Throat: He has an orotracheal tube and NG tube in place. There is no drainage from the nose or ears. Neck: No meningismus. Lungs: Clear to auscultation. Cardiovascular: Heart rate was irregular and rapid. There was a systolic murmur. Abdomen: Seemed to be distended. The incision sites had dressings on them which were intact. I lightly pushed on the patient's abdomen. It did not seem to cause any grimace coming from the patient. Neurologic: The patient is sedated. He did not respond to verbal stimuli. There was no tremor. Integument: No rash noted. Thank you for the consult. cc: Jovan Vasquez MD MTDD
[2018-08-02] MEDS: CARDIZEM 125 MG/D5W 125 MG/125 ML IVPB IV SCH (17:12)
[2018-08-03] MEDS: DIPRIVAN 1% 1,000 MG/100 ML BOTTLE IV SCH ×8 (00:19→21:44)
[2018-08-03] MEDS: MERREM 1 GM in NS 50 ML IV SCH ×2 (00:19→08:43)
[2018-08-03 04:34] LABS: ALLEN TEST YES; BE 1.7 mmoll (-3.0-3.0); BLOOD TYPE ARTERIAL; HCO3-(ACT) 26.2 mmoll (20.0-26.0); METHB 0.6 % (0.0-1.5); O2(CT) 22.8 mL/dL (15.0-23.0); O2HB 96.1 % (95.0-99.0); PCO2(98.6) 38 mmHg (35-45); PO2(98.6) 103 mmHg (60-100); SAMPLE BLOOD; SAO2 96.7 % (95.0-100.0); SRATE 12 BPM; THB 16.8 g/dL (11.5-17.4); TVOL 500 mL; pH(98.6) 7.44 (7.35-7.45)
[2018-08-03 04:35] LABS: MODALITY VENTILATOR
[2018-08-03 05:38] LABS: BASO# 0.03 X1000 (0.0-0.2); BASO% 0.2 % (0.0-0.8); EOS# 0.04 X1000 (0.0-0.7); EOS% 0.2 % (0.0-10.0); HEMOGLOBIN 10.7 g/dL (14.0-18.0); IMM GRAN# 0.16 X1000 (0.0-0.04); IMM GRAN% 0.8 % (0.0-0.5); LYMPH# 1.06 X1000 (1.2-3.4); LYMPH% 5.3 % (20.5-51.1); MCH 28.5 PG (27-31); MCHC 33.4 g/dL (33-37); MCV 85.1 FL (81-99); MONO# 1.14 X1000 (0.11-0.59); MONO% 5.7 % (1.7-9.3); MPV 12.8 FL (7.4-10.4); NEUT# 17.55 X1000 (1.4-6.5); NEUT% 87.8 % (42.2-75.2); PLT 263 X1000 (130-400); RBC 3.76 XMIL (4.7-6.1); RDW 13.9 % (11.5-14.5); WBC 19.98 X1000 (4.8-10.8)
[2018-08-03 06:06] LABS: AGAP 12; ALB/GLOB RATIO 0.5; ALBUMIN 2.1 g/dL (3.5-5.0); ALKALINE PHOSPHATASE 106 U/L (32-122); BUN 36 mg/dL (8-22); CALCIUM 8.4 mg/dL (8.8-10.2); CHLORIDE 104 mmol/L (98-107); COSMO 291; CREATININE 1.1 mg/dL (0.7-1.2); ESTIMATED GFR > 60; GLUCOSE 196 mg/dL (70-104); GOT 58 U/L (10-34); GPT 28 U/L (10-44); POTASSIUM 4.2 mmol/L (3.5-5.1); SODIUM 139 mmol/L (136-145); TCO2 23 mmol/L (25-35); TOTAL BILIRUBIN 0.53 mg/dL (0.20-1.00); TOTAL PROTEIN 6.1 g/dL (6.3-8.3)
[2018-08-03] MEDS: CARDIZEM 125 MG/D5W 125 MG/125 ML IVPB IV SCH ×2 (06:32→18:07)
--- NOTE | 2018-08-03 06:34 | Diag Imaging Result Doc PS360 ---
CHEST-1 VIEW - 08/03/2018 INDICATION: vent COMPARISON: 08/02/2018 FINDINGS: Stable endotracheal tube in good position. Stable pacemaker. Stable cardiomegaly and pulmonary vascular congestion. There is slight worsening patchy infiltrate in the left lung base. Approximately stable infiltrate and/or atelectasis in the right lung base as well. IMPRESSION: Slight worsening infiltrate in the left lung base. Electronically signed by Juancho Taylor 08/03/2018 6:32 AM
[2018-08-03] MEDS: HUMULIN R SUBQ SCH ×3 (06:37→17:45)
--- NOTE | 2018-08-03 07:06 | EKG Report ---
Test Performed on : 07/31/2018 6:59:03 PM Test Reason : CP Blood Pressure : / mmHG Vent. Rate : 101 BPM Atrial Rate : 108 BPM P-R Int : 000 ms QRS Dur : 090 ms QT Int : 322 ms P-R-T Axes : 000 -53 101 degrees QTc Int : 417 ms Atrial fibrillation. with rapid ventricular response. Left axis deviation Anterior infarct , age undetermined Abnormal ECG When compared with ECG of 16-JUL-2018 10:18, Atrial fibrillation. has replaced Electronic ventricular pacemaker Vent. rate has increased BY 35 BPM Unconfirmed Result
--- NOTE | 2018-08-03 07:44 | GENERAL SURGERY PROGRESS NOTE ---
DATE: 08/03/2018 SUBJECTIVE: Reviewed notes from the weekend. Reviewed operative report. Discussed case with the nurse. The patient is still on the ventilator. OBJECTIVE: Vital Signs: The patient is currently afebrile. Pulse is in the 80s, blood pressure 107/73, O2 saturation 94% on the ventilator. General Examination: Sedated. Cardiovascular: Regular rate and rhythm. Lungs: Referred airway noises. Abdomen: Soft. MARIELLA drain in place with serosanguineous output, does not look bilious. Laboratory: White blood cell count is 19, hematocrit 32, platelet count 263,000. ABG reviewed. ASSESSMENT AND PLAN: A 67-year-old gentleman status post laparoscopic cholecystectomy and subsequent laparoscopic washout. Postoperative state. At this time, the patient does have gram-positive cocci in his blood with strep. At this time, he is on antibiotics. He does not have what looks like a bile leak at this moment but the potential for a duodenal perforation is still there since they were unable to rule it out completely. At this point, we just recommend monitoring him, maybe get an upper gastrointestinal series once he is kind of recovered to see if any extravasation. At this time, I recommend holding the course. cc: Raffy Quiroz MD
[2018-08-03] MEDS: ASPIRIN EC PO SCH ×2 (08:43→08:50)
[2018-08-03] MEDS: NS 1,000 ML IV SCH (08:50)
[2018-08-03] MEDS: MORPHINE IV PRN (09:33)
--- NOTE | 2018-08-03 11:20 | Diag Imaging Result Doc PS360 ---
KUB ABDOMEN - 08/03/2018 INDICATION: abdominal distention COMPARISON: CT from 07/31/2018 FINDINGS: Portable exam was performed. Detail is extremely poor. The stomach is somewhat distended with gas. This may represent gastroparesis. IMPRESSION: Possible gastroparesis. Electronically signed by Juancho Taylor 08/03/2018 11:17 AM
[2018-08-03] MEDS: CUBICIN 500 MG in NS 100 ML IV SCH (11:31)
--- NOTE | 2018-08-03 12:35 | PROGRESS NOTE ---
DATE: 08/03/2018 SUBJECTIVE: Today Mr. Echevarria continues to be intubated in the ICU. was at the bedside at the time of the encounter. OBJECTIVELY: Vitals: Blood pressure is 135/81, pulse is 90, respirations 20, temperature is 98.8. General: Mr. Echevarria is a 67-year-old gentleman. He is in bed, intubated and sedated on propofol. HEENT: Mucosa is pink and moist. Anicteric and acyanotic. Neck: Supple. Chest: Good air entry bilaterally. There is no crepitations. No rhonchi. There are some transmitted sounds from the ventilator. Cardiovascular: Irregularly irregular, but rate controlled. No murmurs, no rubs, no gallops. GI: Abdomen soft, distended. The patient will grimace whenever the abdomen is being palpated. There is a MARIELLA drain in the right upper quadrant. Extremities: No pedal edema. Chapin catheter is in place. FACTORY SUPERINTENDENT: Patient is currently intubated and sedated on propofol. However, grimaces to painful stimulation and will move extremities to painful stimulation. LABORATORY DATA: WBC is up to 19.98, hemoglobin is 10.7, platelet count of 263,000. Chemistry is also reviewed. Sodium is 139, potassium is 4.2, chloride 104, bicarb is 23, creatinine is 1.1, which has normalized. The blood culture has shown Streptococcus anginosus. A chest x-ray this morning shows slight worsening infiltrates in the left lung base. A KUB shows possible gastroparesis. ASSESSMENT: 1. Acute abdomen status post diagnostic laparoscopy with placement of subhepatic drain. It appears that there was some purulent exudate in the gallbladder fossa. This was aspirated during surgery. 2. Septic shock with Streptococcus anginosus bacteremia. The patient is currently on meropenem and daptomycin. I think this can now be tailored down to either penicillin or cephalosporin. Infectious Disease is on board and we will await their recommendations with regards to this. 3. Atrial fibrillation with rapid ventricular response. We think this is secondary to the ongoing sepsis. The patient is on Cardizem drip. Cardiology is on board. 4. Acute kidney injury. Creatinine has normalized. 5. Chronic liver disease, likely steatohepatitis as per liver biopsy report. 6. Diabetes mellitus we will continue with insulin therapy. 7. Respiratory failure after abdominal surgery. Patient continues to be intubated. Pulmonary Medicine is on board. 8. Distended abdomen with KUB suggestion of gastroparesis. We are going to put an NG tube in place with intermittent suctioning. We think this is all secondary to the ongoing sepsis. 9. Suspected duodenal perforation. Surgery is on board. There is a plan for possible GI series studies when patient is more stable. PLAN: So in general, Mr. Echevarria has failed SBT today. He will continue to be under ventilatory support. He is still getting Clinimix. We will add some lipid infusion to that. We will continue with the current antimicrobial coverage pending further recommendations from Dr. Vasquez, Infectious Disease. Blood culture shows Streptococcus anginosus. We will get an NG tube today because of gastroparesis and also try to decompress the upper GI tract. I have discussed my plan with the who was at the bedside at the time of the encounter. Dr. Bravo was also there. He did explain the image on the CT scan, which seems to suggest a migration. He thinks that is a normal position for the stent. cc: Dale Pack MD MTDD
--- NOTE | 2018-08-03 13:36 | INFECTIOUS DISEASE PROGRESS NO ---
DATE: 08/03/2018 PRESENT ILLNESS: The patient has streptococcal bacteremia. This may have originated from an intra-abdominal focus or could be from an IV site or possibly from a pulmonary origin. MEDICATIONS: The patient is receiving daptomycin and meropenem. OBJECTIVE: Vital Signs: Temperature is 99 degrees, pulse 94, respirations 18, blood pressure 118/76. General: This is an ill-appearing elderly male. He is intubated and sedated. Head/eyes/ears/nose/throat: Patient is intubated. There is no drainage from the nose or ears. Neck: No meningismus. Lungs: Clear to auscultation. Cardiovascular: Heart rate is rapid and irregular. Abdomen: Distended. The incisions have dressings on them. They are intact. Neurologic: The patient is obtunded. He does not respond to verbal stimuli. There is no tremor. LABORATORY AND X-RAY: Chest x-ray shows slight worsening of the left lower lobe infiltrate. A culture from the abdominal drainage is negative thus far. Blood cultures are growing strep anginosus. Creatinine is 1.1. GFR is greater than 60. Blood gases show a pH of 7.44, PO2 of 103, pCO2 of 38. CBC shows a white count of 19,980, hemoglobin 10.7, platelet count 263,000. ASSESSMENT AND PLAN: 1. The patient has a streptococcal bacteremia and possible pneumonia. I have switched the patient from daptomycin and meropenem to Rocephin in a dose of 2 g IV every 12 hours. 2. Comorbidities: The patient has diabetes mellitus, obesity, atrial fibrillation, and congestive heart failure. He is status post placement of a bile duct stent and cholecystectomy. cc: Jovan Vasquez MD [facility]
[2018-08-03] MEDS: ROCEPHIN 2 GM in NS 50 ML IV SCH (13:51)
--- NOTE | 2018-08-03 14:12 | GASTROENTEROLOGY PROGRESS NOTE ---
DATE: 08/03/2018 SUBJECTIVE: Patient is intubated and sedated on mechanical ventilation. Family at the bedside. Patient is currently not responsive due to sedation.Vital signs: Temperature 98.3 degrees, pulse 94, respirations 18, blood pressure 118/76. General: The patient is sedated on mechanical ventilation. Does not respond to stimulus at present time. LABORATORY: Hematology. WBC 19.98, hemoglobin 10.7, hematocrit 32.0, MCV 85.1, platelets 263,000. Chemistry sodium 139, potassium 4.2, chloride 104, CO2 of 23, BUN 36, creatinine 1.1, glucose 196. ASSESSMENT AND PLAN: 1. Recent diagnostic laparoscopy with placement of subhepatic drain. Continue current management. 2. Sepsis on antibiotics following with infectious disease. 3. Recent cholecystectomy. 4. History of colon bile duct stent placement. 5. Respiratory failure on mechanical ventilation. Continue management per pulmonology. 6. Continue current management. Will continue to follow. Once he has recovered from surgery we can proceed with ERCP and stent removal. That can be done as an outpatient. Will continue to follow. Further plans will be made as needed. Patient was also seen by Dr. Russell. Dictated by DANIEL Worthington for Immanuel Russell MD cc: DANIEL Winslow MD [facility]
--- NOTE | 2018-08-03 14:54 | Diag Imaging Result Doc PS360 ---
EXAM: CHEST/ABD TUBE PLACEMENT 08/03/2018 HISTORY: OGT placement TECHNIQUE: AP portable at 1420 COMMENT: There is an OG tube with its tip in the stomach. IMPRESSION: OG tube in the stomach. Electronically signed by Dany Rodriges 08/03/2018 2:52 PM
--- NOTE | 2018-08-03 19:48 | PULMONOLOGY PROGRESS NOTE ---
DATE: 08/03/2018 SUBJECTIVE: The patient is arousable to alert. He was placed on a spontaneous breathing trial. OBJECTIVE: Vital Signs: Maximum temperature in the last 24 hours is 99.5 degrees, blood pressure 115/69, heart rate 85, respiratory rate 17, oxygen saturation 97%. HEENT: Pupils are equal and reactive. Oropharynx is clear but evaluation is limited with endotracheal tube in place. Neck: Supple. Chest: Reveals shallow breath sounds bilaterally. Cardiac exam: S1, S2. Abdomen: [id number]-[id number] distended with increased tympany. Extremities: Reveal 1+ peripheral edema. LABORATORIES: Arterial blood gas reveals a pH of 7.44, pCO2 of 38, pO2 of 103. Sodium 139, potassium 4.2, chloride 104, bicarbonate 23, BUN 36, creatinine 1.1, glucose 196. Chest x-ray reveals cardiomegaly, vascular congestion, patchy basilar infiltrates with shallow inspiration. Sputum culture is pending. Blood cultures reveal Streptococcus anginosus. White blood count 19.98, hemoglobin 10.7, platelet count 263,000. IMPRESSION: A 67-year-old with: 1. Acute abdomen, status post surgical drainage with positive blood cultures due to Streptococcus anginosus. 2. Bibasilar pneumonia. 3. Acute hypoxemic respiratory failure. 4. Chronic renal insufficiency. 5. Leukocytosis. 6. Obesity. 7. Diabetes mellitus. 8. Increased abdominal tympany. PLAN: 1. Continue daily ventilatory weaning trials. He failed the weaning trial again this morning. 2. Continue antibiotics per Infectious Disease. 3. KUB to evaluate abdominal distention. 4. Continue bronchial hygiene and sedation. Time Spent in Critical Care Management: 30+minutes cc: Zi Duarte MD [facility]
[2018-08-04] MEDS: HUMULIN R SUBQ SCH ×6 (00:28→22:24)
[2018-08-04] MEDS: ROCEPHIN 2 GM in NS 50 ML IV SCH ×2 (00:29→14:11)
[2018-08-04] MEDS: NS 1,000 ML IV SCH (00:29)
[2018-08-04] MEDS: DIPRIVAN 1% 1,000 MG/100 ML BOTTLE IV SCH ×8 (00:29→22:26)
[2018-08-04 04:33] LABS: BASO# 0.05 X1000 (0.0-0.2); BASO% 0.3 % (0.0-0.8); EOS# 0.04 X1000 (0.0-0.7); EOS% 0.2 % (0.0-10.0); HEMATOCRIT 32.3 % (42.0-52.0); HEMOGLOBIN 10.8 g/dL (14.0-18.0); IMM GRAN% 1.2 % (0.0-0.5); LYMPH# 1.23 X1000 (1.2-3.4); LYMPH% 7.2 % (20.5-51.1); MCH 28.3 PG (27-31); MCHC 33.4 g/dL (33-37); MCV 84.6 FL (81-99); MONO# 0.68 X1000 (0.11-0.59); MPV 12.4 FL (7.4-10.4); NEUT# 14.87 X1000 (1.4-6.5); NEUT% 87.1 % (42.2-75.2); PLT 284 X1000 (130-400); RBC 3.82 XMIL (4.7-6.1); WBC 17.07 X1000 (4.8-10.8)
[2018-08-04 04:37] LABS: ALLEN TEST YES; BE 3.4 mmoll (-3.0-3.0); BLOOD TYPE ARTERIAL; HCO3-(ACT) 27.5 mmoll (20.0-26.0); METHB 0.5 % (0.0-1.5); O2(CT) 14.1 mL/dL (15.0-23.0); O2HB 94.1 % (95.0-99.0); PCO2(98.6) 34 mmHg (35-45); PO2(98.6) 70 mmHg (60-100); SAMPLE BLOOD; SAO2 94.7 % (95.0-100.0); SRATE 12 BPM; THB 10.6 g/dL (11.5-17.4); TVOL 500 mL
[2018-08-04 04:39] LABS: MODALITY VENTILATOR
[2018-08-04 04:49] LABS: AGAP 11; ALB/GLOB RATIO 0.6; ALBUMIN 2.2 g/dL (3.5-5.0); ALKALINE PHOSPHATASE 112 U/L (32-122); BUN 33 mg/dL (8-22); CALCIUM 8.3 mg/dL (8.8-10.2); CHLORIDE 105 mmol/L (98-107); COSMO 291; CREATININE 0.9 mg/dL (0.7-1.2); ESTIMATED GFR > 60; GLUCOSE 213 mg/dL (70-104); GOT 36 U/L (10-34); GPT 20 U/L (10-44); POTASSIUM 3.7 mmol/L (3.5-5.1); SODIUM 139 mmol/L (136-145); TCO2 23 mmol/L (25-35); TOTAL BILIRUBIN 0.38 mg/dL (0.20-1.00)
[2018-08-04 04:55] LABS: LYMPHS 8 % (21-51); MONO 2 % (1-9); SEGS 88 % (42-75)
--- NOTE | 2018-08-04 06:38 | Diag Imaging Result Doc PS360 ---
EXAM: CHEST-PORTABLE HISTORY: dyspnea TECHNIQUE: Portable chest single view COMPARISON: 08/03/2018 FINDINGS: The endotracheal and nasogastric tubes are in good position. There is a left-sided pacemaker. The heart remains enlarged. No pulmonary edema. There is a small left pleural effusion with basilar atelectasis and there may be underlying infiltrates. There are smaller infiltrates in the right base. IMPRESSION: No interval improvement. Electronically signed by Lyle Russo 08/04/2018 6:35 AM
[2018-08-04] MEDS: CARDIZEM 125 MG/D5W 125 MG/125 ML IVPB IV SCH ×2 (07:34→22:23)
--- NOTE | 2018-08-04 07:52 | GENERAL SURGERY PROGRESS NOTE ---
DATE: 08/04/2018 SUBJECTIVE: Discussed the case with the nurse taking care of the patient. He seems to be doing about the same. He did not pass the spontaneous breathing trial yesterday. He still is intubated. OBJECTIVE: Vital Signs: The patient is currently afebrile. His vital signs have been stable. General Examination: No acute distress. Sedated and on the ventilator. Cardiovascular: Somewhat mildly tachycardic but irregular. Lungs: Coarse sounds noted from the ventilator. Abdomen: Soft, nontender. Some distention. MARIELLA drain in place with serosanguineous output. Laboratory: Reviewed. White blood cell count is down a little bit to 17, hematocrit 32, platelet count 284,000. ABG and CMP reviewed. ASSESSMENT AND PLAN: A 67-year-old gentleman status post laparoscopic cholecystectomy and subsequent laparoscopic washout. Postoperative state. At this time, continue current treatment. He is being treated for gram- positive bacteremia. Defer the ventilator to pulmonology but otherwise continue current treatment. We will continue the Luis A-Dobbs drain for now. He does not have any bilious drainage. May at some point need to consider upper gastrointestinal series once he is stable enough to undergo this study. cc: Raffy Quiroz MD
[2018-08-04] MEDS: ASPIRIN EC PO SCH (09:24)
[2018-08-04] MEDS ORDERED: PROCALAMINE 1,000 ML IV SCH (09:45)
[2018-08-04] MEDS: CLINIMIX E 4.25%-5% SOLUTION 1,000 ML IV SCH ×2 (10:25→19:41)
[2018-08-04] MEDS: LOVENOX SUBQ SCH (10:25)
[2018-08-04] MEDS: ALBUMIN 25% IV SCH ×2 (10:25→17:19)
[2018-08-04] MEDS: LASIX IV SCH ×2 (10:59→18:11)
--- NOTE | 2018-08-04 11:41 | INFECTIOUS DISEASE PROGRESS NO ---
DATE: 08/04/2018 PRESENT ILLNESS: The patient has a streptococcal bacteremia, the exact origin of which is uncertain to me. It may have originated from an intra-abdominal focus or possibly from an IV site or also a pulmonary origin is a possibility. MEDICATIONS: The patient is receiving Rocephin 2 g IV every 12 hours. Day 1 of treatment will be the first day that the repeat blood cultures turn negative. PHYSICAL EXAMINATION: Vital Signs: Temperature is 98.1 degrees, pulse 97, respirations 21, blood pressure 112/74. General: This is an ill-appearing, obese, elderly male. He is intubated and sedated. Head/eyes/ears/nose/throat: There is no drainage from the nose or ears. The patient has an orotracheal tube in place. Neck: No meningismus. Lungs: Clear to auscultation. Cardiovascular: Heart rate is irregular. Abdomen: The abdomen is distended. The incisions have dressings on them. The kidney dressings are intact. Neurologic: The patient is obtunded. He did not respond to verbal stimuli. He does not have a tremor. Chest: Pacemaker site in left chest not swollen or red. LABORATORY AND X-RAY: CBC shows a white count of 17,070, hemoglobin 10.8 and platelet count 284,000. Creatinine is 0.9. GFR is greater than 60. Liver function studies were normal except for an AST of 36. Blood gases showed a pH of 7.5, a PO2 of 70, and a pCO2 of 34. Abdominal and sputum cultures are thus far negative. Chest x-ray shows bibasilar infiltrates. ASSESSMENT AND PLAN: 1. Patient has streptococcal bacteremia and possible pneumonia. At this time, given the negative cultures from the abdomen, it does not look like the origin of the patient's Streptococcus is from the abdomen. My plan would be to continue with Rocephin for 6 weeks in case the pacemaker and/or metal in spine became hematogenously infected. Following this the patient will be put on a low dose of a PO antibiotic indefinitely. 2. Comorbidities: Diabetes mellitus, obesity, congestive heart failure and placement of a bile duct stent and a cholecystectomy. cc: MD DEEPTHI Muñiz
--- NOTE | 2018-08-04 16:02 | GASTROENTEROLOGY PROGRESS NOTE ---
DATE: 08/04/2018 SUBJECTIVE: At the time of my evaluation, patient was being bathed. He was still on mechanical ventilation. He is sedated. Nurse techs report some responsiveness with stimulus. OBJECTIVE: Vital Signs: Temperature 97.6 degrees, pulse 91, respirations 25, blood pressure 108/66. General: The patient was sedated on mechanical ventilation. LABORATORY: Hematology. WBC 17.07, hemoglobin 10.8, hematocrit 32.3, MCV 84.6, platelets 284,000. Chemistry. Sodium 139, potassium 3.7, chloride 105, CO2 of 23, BUN 33, creatinine 0.9, glucose 213. ASSESSMENT AND PLAN: 1. Recent laparoscopy/cholecystectomy, subhepatic drain placement. 2. Sepsis on antibiotics following with Infectious Disease. 3. History of endoscopic retrograde cholangiopancreatography with common bile duct stent placement. Radiology reports it showed some displacement of the stent although still in place. We will continue to follow and plan to repeat ERCP and stent removal when patient is stable enough to proceed. Most likely as an outpatient. I have discussed this case with Dr. Russell. Dictated by DANIEL Worthington for Immanuel Russell MD cc: DANIEL Winslow MD [facility]
[2018-08-04] MEDS ORDERED: SODIUM CHLORIDE 0.9% INJ SCH (16:15)
--- NOTE | 2018-08-04 16:34 | PROGRESS NOTE ---
DATE: 08/04/2018 SUBJECTIVE: Patient currently intubated. Has present room. OBJECTIVE: Vital signs: Temperature 97.6 degrees, pulse 87, respiratory 20, blood pressure 114/69, oxygen saturation 95%. HEENT: Atraumatic, normocephalic. Pupils equal, poorly reactive. Anicteric. Has an ET tube in place. Neck: No lymphadenopathy or thyromegaly. Cardiovascular: S1, S2. Respiratory: Has evidence of good air entry bilaterally. Abdomen: Soft, nontender, no masses felt. Extremities: No evidence of significant edema. Central nervous system: No obvious focal deficit noted. LABS: WBC is 17.07, hematocrit is 22.3 with a platelet count of 284,000. ABG 7.5/34/70/94.7%. Chemistry sodium is 139, potassium 3.7, chloride is 105, bicarb 23, BUN is 33, creatinine 0.9. ASSESSMENT AND PLAN: 1. Acute respiratory failure. Continue vent support. Pulmonary team is following. 2. Septic shock with strep bacteremia. Continue current antibiotic regimen, ID following. 3. Atrial fibrillation with rapid ventricular response. Continue rate controlling agent. Cardiology is following. 4. Diabetes mellitus. Continue current insulin regimen. Follow up on blood sugar levels. 5. Acute abdomen status post diagnostic laparoscopy with placement of subhepatic drain. It appears there was some purulent exudate in the gallbladder fossa which was aspirated during surgery. 6. Suspected duodenal perforation. Surgery following. 7. Deep vein thrombosis prophylaxis Lovenox. 8. Gastrointestinal prophylaxis PPI. cc: Cuong Smith MD
[2018-08-04] MEDS: PROTONIX IV SCH (17:15)
--- NOTE | 2018-08-04 18:00 | PULMONOLOGY PROGRESS NOTE ---
DATE: 08/04/2018 SUBJECTIVE: The patient is arousable to alert with discontinuation of sedation. He was observed at the bedside on a spontaneous breathing trial, which he failed due to tachypnea and a respiratory rate approaching 50 with shallow tidal volumes. OBJECTIVE: The patient has been afebrile for the last 24 hours. Blood pressure 114/69, heart rate 87, respiratory rate 21, oxygen saturation 95%. HEENT: Pupils are equal and reactive. Oropharynx appears clear. Neck is supple. Chest reveals rhonchi bilaterally. Cardiac: S1, S2. Abdomen is soft with diminished bowel sounds. Extremities reveal 2+ peripheral edema. DIAGNOSTIC STUDIES: Arterial blood gas pH 7.50, pCO2 of 34, PO2 of 70. White blood count 17.07, hemoglobin 10.8, platelet count 284,000. Sodium 139, potassium 3.7, chloride 103, bicarbonate 23, BUN 33, creatinine 0.9, glucose 213, albumin 2.2. Chest x-ray reveals good endotracheal and nasogastric tube placements. Left- sided pacemaker. Bibasilar infiltrates which are stable. IMPRESSION: A 67-year-old with: 1. Acute abdomen status post surgical drainage of a subphrenic abscess. 2. Bibasilar pneumonia. 3. Acute hypoxemic respiratory failure. 4. Chronic renal insufficiency. 5. Leukocytosis. 6. Obesity. 7. Diabetes mellitus. 8. Generalized weakness. PLAN: 1. Continue daily ventilatory trials. 2. Continue antibiotics per Infectious Disease. 3. We will initiate ProcalAmine as a nutrition bridge. He is also getting some fat through his Diprivan. 4. Continue antibiotics per Infectious Disease. Time spent in critical care management: 30+ minutes cc: Zi Duarte MD [facility]
[2018-08-05] MEDS: CLINIMIX E 4.25%-5% SOLUTION 1,000 ML IV SCH ×3 (01:02→21:24)
[2018-08-05] MEDS: ROCEPHIN 2 GM in NS 50 ML IV SCH ×2 (01:02→12:20)
[2018-08-05] MEDS: HUMULIN R SUBQ SCH ×7 (01:12→21:24)
[2018-08-05] MEDS: DIPRIVAN 1% 1,000 MG/100 ML BOTTLE IV SCH ×8 (01:54→22:34)
[2018-08-05 03:46] LABS: ALLEN TEST YES; BLOOD TYPE ARTERIAL; HCO3-(ACT) 29.6 mmoll (20.0-26.0); MODALITY VENTILATOR; O2(CT) 9.2 mL/dL (15.0-23.0); PCO2(98.6) 35 mmHg (35-45); PO2(98.6) 91 mmHg (60-100); SAMPLE BLOOD; SAO2 97.3 % (95.0-100.0); SRATE 12 BPM; THB 6.7 g/dL (11.5-17.4); TVOL 500 mL; pH(98.6) 7.53 (7.35-7.45)
[2018-08-05 06:49] LABS: HEMATOCRIT 31.9 % (42.0-52.0); HEMOGLOBIN 10.7 g/dL (14.0-18.0); MCH 28.5 PG (27-31); MCHC 33.5 g/dL (33-37); MCV 84.8 FL (81-99); MPV 12.9 FL (7.4-10.4); RBC 3.76 XMIL (4.7-6.1); WBC 14.13 X1000 (4.8-10.8)
[2018-08-05 07:08] LABS: AGAP 15; ALB/GLOB RATIO 0.7; ALBUMIN 2.7 g/dL (3.5-5.0); ALKALINE PHOSPHATASE 91 U/L (32-122); BUN 36 mg/dL (8-22); CALCIUM 8.5 mg/dL (8.8-10.2); CHLORIDE 104 mmol/L (98-107); COSMO 301; CREATININE 0.9 mg/dL (0.7-1.2); ESTIMATED GFR > 60; GLUCOSE 245 mg/dL (70-104); GOT 25 U/L (10-34); GPT 12 U/L (10-44); POTASSIUM 3.3 mmol/L (3.5-5.1); SODIUM 143 mmol/L (136-145); TCO2 24 mmol/L (25-35); TOTAL BILIRUBIN 0.28 mg/dL (0.20-1.00); TOTAL PROTEIN 6.6 g/dL (6.3-8.3)
--- NOTE | 2018-08-05 07:19 | GENERAL SURGERY PROGRESS NOTE ---
DATE: 08/05/2018 Discussed case with the nurse. The patient's respiratory status still remains somewhat of an issue. He has never had any bile coming out of his Luis A-Dobbs drain. The main issue at this point seems to be his overall respiratory status and less an intra-abdominal process. Regardless, once he seems to make some improvement, may consider upper GI study to evaluate for any kind of duodenal leak given the concern, but otherwise continue current treatment. cc: Raffy Quiroz MD
--- NOTE | 2018-08-05 08:07 | Diag Imaging Result Doc PS360 ---
EXAM: CHEST-PORTABLE 08/05/2018 HISTORY: respiratory failure TECHNIQUE: AP portable at 0519 COMMENT: There is an endotracheal tube with its tip at thoracic inlet and an NG tube with its tip below the diaphragm. There is atelectasis versus pneumonia in the right lower lobe. The inspiration is less optimal than on the previous study of 08/04/2018. The left base is clearer however than on the previous study. There may be a small right pleural effusion. IMPRESSION: Right basilar atelectasis versus pneumonia with pleural effusion. Electronically signed by Dany Rodriges 08/05/2018 8:05 AM
[2018-08-05] MEDS: LOVENOX SUBQ SCH (08:50)
[2018-08-05] MEDS: ASPIRIN EC PO SCH (09:47)
--- NOTE | 2018-08-05 12:14 | INFECTIOUS DISEASE PROGRESS NO ---
DATE: 08/05/2018 PRESENT ILLNESS: Mr. Echevarria is being treated for a streptococcal bacteremia as well as a possible pneumonia. He is status post drainage of a subhepatic fluid collection with laparoscopy and placement of a subhepatic drain. MEDICATIONS: He is receiving Rocephin 2 grams IV every 12 hours. PHYSICAL EXAMINATION: Vital Signs: Temperature is 98 degrees, pulse rate 91, respiratory rate 21, blood pressure 118/75, O2 saturation is 98% on 60% FiO2 on the mechanical ventilator. General: This is an elderly, acutely ill-appearing gentleman. He is lying in the bed, sedated, on the mechanical ventilator. No acute distress. HEENT: Atraumatic, normocephalic. Oral ET tube and OG tube are in place. Cardiovascular: Irregularly irregular. Atrial fibrillation on the monitor. Systolic murmur noted. Respiratory: Lung sounds have some rhonchi noted bilaterally. Diminished overall. He is breathing over the set rate on the ventilator. Abdomen: Soft, round, obese. Bowel sounds are hypoactive. Integumentary: There are OpSite dressings in place to the abdomen, with a MARIELLA drain on the right. His dressings are dry and intact. The MARIELLA drain has serosanguineous drainage in the bulb. Neurologic: He is sedated. However, he did awaken earlier during his weaning trial, according to his family at bedside, and nodded his head and followed commands appropriately. IMAGING AND LABORATORY DATA: Today, his white count is 14.13, hemoglobin 10.7, platelet count 283,000. Blood gas on 60% FiO2 this morning showed a pH of 7.53, pCO2 of 35, PO2 of 91, HCO3 of 29.6. Creatinine 0.9. Estimated GFR is greater than 60. Total bilirubin 0.28, AST 25, ALT 12, alkaline phosphatase 91. His original blood culture showed a strep anginosus. Abdominal culture showed no growth. Sputum culture shows no growth on the preliminary report, with a Gram stain showing no bacteria or yeast. Blood cultures were redrawn yesterday and are preliminary. Chest x-ray today shows right basilar atelectasis versus pneumonia with pleural effusion. ASSESSMENT AND PLAN: Mr. Echevarria is being treated for a strep bacteremia and a possible pneumonia. Today, his leukocytosis is improving. He has been afebrile for more than 48 hours. The plan will be to continue Rocephin for 6 weeks due to the presence of a pacemaker and metal in his spine, which could have been hematogenously infected. The first day of treatment will be the first day of sterile blood cultures, which will hopefully be the cultures drawn yesterday. After he has finished his 6 weeks of treatment, he will need low-dose prophylaxis indefinitely. I have talked to his family, who are at bedside, about the protocol for home IV antibiotics and long-term prevention. They have stated understanding, and agree with the plan as outlined thus far. These plans have been discussed with and recommended by Dr. Vasquez. COMORBIDITIES for Mr. Echevarria include that he is elderly with diabetes mellitus, obesity, congestive heart failure, and atrial fibrillation. Dictated by DANIEL Franklin for Jovan Vasquez MD cc: Jovan Vasquez MD [facility]
--- NOTE | 2018-08-05 12:39 | PROGRESS NOTE ---
DATE: 08/05/2018 SUBJECTIVE: The patient is currently intubated. He has family present in the room. OBJECTIVE: Vital Signs: Temperature 98 degrees, pulse 91, respiratory 21, blood pressure 118/75, and oxygen saturation is 96%. HEENT: Atraumatic, normocephalic. He is anicteric. Pupils are poorly reactive to light. Currently, he has an ET tube in place. Neck: No lymphadenopathy or thyromegaly. Cardiovascular: S1, S2. Respiratory: There is evidence of good air entry bilaterally. Abdomen: Soft, nontender. No masses felt. Extremities: No evidence of edema. Central nervous system: No obvious focal deficits noted. LABORATORY: WBC is 14.13, hematocrit 31.89 with a platelet count of 283,000. ABG 7.5, 30/35/91/7.3%. Sodium is 143, potassium 3.3, chloride 104, bicarb is 24, BUN is 26 and creatinine 0.9. ASSESSMENT AND PLAN: 1. Acute respiratory failure. Continue ventilator support. Pulmonary Team following. 2. Septic shock with strep bacteremia. Continue antibiotics as recommended by ID. 3. Atrial fibrillation with rapid ventricular rate. Continue rate controlling agent. Cardiology is following. 4. Diabetes mellitus. Continue blood sugar with as well as sliding scale insulin. Monitor blood sugar. 5. Acute abdomen status post diagnostic laparoscopy. Replacement of subhepatic drain. Surgery following. 6. Suspect duodenal perforation. Surgery following. 7. Deep vein thrombosis prophylaxis. Lovenox. 8. Gastrointestinal prophylaxis with PPI. cc: Cuong Smith MD
[2018-08-05] MEDS: PROTONIX IV SCH (15:56)
--- NOTE | 2018-08-05 18:28 | GASTROENTEROLOGY PROGRESS NOTE ---
DATE: 08/05/2018 SUBJECTIVE: Patient is sedated on mechanical ventilation. No family at the bedside at the time of my evaluation. OBJECTIVE: Vital Signs: Temperature 97.5, pulse 109, respirations 20, blood pressure 124/82. General: Patient is intubated on mechanical ventilation. He is sedated. LABORATORY: Hematology: WBC 14.13, hemoglobin 10.7, hematocrit 31.9. MCV 84.8, platelets 283. Chemistry: Sodium 143, potassium 3.3, chloride 104, CO2 of 24, BUN 36, creatinine 0.9, glucose 245. Total bilirubin 0.28, AST 25, ALT 12, alkaline phosphatase 91. ASSESSMENT AND PLAN: 1. Recent cholecystectomy and recent laparoscopy, subhepatic drain placement. 2. Sepsis with exact cause unknown. Following with infectious disease. 3. History of ERCP with common bile duct stent placement. Radiology report showed some displacement, but stent was still intact. Will continue to follow. Once he is stable most likely as an outpatient, we will plan to repeat ERCP with stent removal. I have discussed this case with Dr. Russell. Dictated by DANIEL Worthington for Immanuel Russell MD cc: DANIEL Winslow MD
[2018-08-05] MEDS: MORPHINE IV PRN (20:10)
[2018-08-05] MEDS ORDERED: LASIX IV ONE (21:35)
[2018-08-05] MEDS ORDERED: LASIX 200 MG in NS 25 ML IV ONE (22:00)
--- NOTE | 2018-08-05 22:22 | PULMONOLOGY PROGRESS NOTE ---
DATE: 08/05/2018 SUBJECTIVE: The patient is sedated. His sedation was held until he was arousable. He remains extremely weak and fails spontaneous breathing trial within 10 minutes. OBJECTIVE: Vital Signs: The patient has been afebrile for the last 24 hours, BP 109/77, heart rate 97, respiratory rate 28, oxygen saturation 99%. HEENT: Pupils are equal and reactive. Oropharynx is clear. Neck: Supple. Chest: Reveals diminished breath sounds bilaterally with occasional bowel sounds present, mildly obese. Cardiac Exam: S1, S2. Extremities: Reveal 1 to 2+ peripheral edema. LABORATORIES: White blood count 14.1, hemoglobin 10.7, platelet count 283,000. Arterial blood gas reveals a pH of 7.53, pCO2 of 35, pO2 of 31. Sodium 143, potassium 3.3, chloride 104, bicarbonate 24, BUN 36, creatinine 0.9. IMAGING: Chest x-ray reveals some clearing of the left base with persistent changes at the right base. IMPRESSION: A 67-year-old with: 1. Acute abdomen, status post surgical drainage of a subphrenic abscess. 2. Bibasilar pneumonia. 3. Hypoxemic respiratory failure. 4. Chronic renal insufficiency. 5. Obesity. 6. Diabetes mellitus. 7. Profound weakness affecting upper and lower extremities as well as the diaphragm likely related to his critical illness. PLAN: 1. Attempt to balance intake and output. 2. Continue daily ventilatory trials. 3. Continue ProcalAmine and lipids through Diprivan. He may require TPN if his gut cannot be utilized in the next 48 to 72 hours. 4. Continue antibiotics per Infectious Disease. Time Spent in Critical Care Management: 30+ minutes cc: Zi Duarte MD [facility]
[2018-08-06] MEDS: DIPRIVAN 1% 1,000 MG/100 ML BOTTLE IV SCH ×6 (00:45→18:15)
[2018-08-06] MEDS: ROCEPHIN 2 GM in NS 50 ML IV SCH ×2 (00:45→14:02)
[2018-08-06] MEDS: HUMULIN R SUBQ SCH ×6 (00:46→20:47)
[2018-08-06 04:18] LABS: ALLEN TEST YES; BE 6.7 mmoll (-3.0-3.0); BLOOD TYPE ARTERIAL; HCO3-(ACT) 30.1 mmoll (20.0-26.0); METHB 0.6 % (0.0-1.5); O2(CT) 16.4 mL/dL (15.0-23.0); O2HB 96.6 % (95.0-99.0); PCO2(98.6) 44 mmHg (35-45); PO2(98.6) 126 mmHg (60-100); SAMPLE BLOOD; SAO2 97.2 % (95.0-100.0); SRATE 12 BPM; THB 11.9 g/dL (11.5-17.4); TVOL 500 mL; pH(98.6) 7.46 (7.35-7.45)
[2018-08-06 04:19] LABS: MODALITY VENTILATOR
[2018-08-06 06:31] LABS: HEMATOCRIT 33.5 % (42.0-52.0); HEMOGLOBIN 10.9 g/dL (14.0-18.0); MCH 28.1 PG (27-31); MCHC 32.5 g/dL (33-37); MCV 86.3 FL (81-99); MPV 13.2 FL (7.4-10.4); RBC 3.88 XMIL (4.7-6.1); RDW 14.2 % (11.5-14.5); WBC 12.55 X1000 (4.8-10.8)
[2018-08-06 06:55] LABS: AGAP 13; ALB/GLOB RATIO 0.5; ALBUMIN 2.2 g/dL (3.5-5.0); ALKALINE PHOSPHATASE 91 U/L (32-122); BUN 34 mg/dL (8-22); CALCIUM 9.1 mg/dL (8.8-10.2); CHLORIDE 105 mmol/L (98-107); COSMO 302; CREATININE 0.8 mg/dL (0.7-1.2); ESTIMATED GFR > 60; GLUCOSE 204 mg/dL (70-104); GOT 25 U/L (10-34); GPT 10 U/L (10-44); POTASSIUM 3.5 mmol/L (3.5-5.1); SODIUM 145 mmol/L (136-145); TCO2 27 mmol/L (25-35); TOTAL BILIRUBIN 0.26 mg/dL (0.20-1.00); TOTAL PROTEIN 6.3 g/dL (6.3-8.3)
--- NOTE | 2018-08-06 07:09 | Diag Imaging Result Doc PS360 ---
EXAM: CHEST-PORTABLE 08/06/2018 HISTORY: respiratory failure TECHNIQUE: AP portable at 0504 COMMENT: There is an endotracheal tube with its tip at the thoracic inlet and an NG tube which passes below the diaphragm. There are bilateral pleural effusions. This has worsened on the left since the previous study of 08/05/2018. There is pulmonary edema versus pneumonia bilaterally. This is also slightly worse. IMPRESSION: Worsened pulmonary edema and pleural effusions. Electronically signed by Dany Rodriges 08/06/2018 7:07 AM
--- NOTE | 2018-08-06 08:58 | INFECTIOUS DISEASE PROGRESS NO ---
DATE: 08/06/2018 PRESENT ILLNESS: The patient has a streptococcal bacteremia the exact origin of which is uncertain to me. He has pulmonary infiltrates, which most likely seem to be due to pulmonary venous congestion rather than pneumonia. MEDICATIONS: The patient has had 2 days of treatment with Rocephin at a dose of 2 g IV every 12 hours. The first day of treatment with Rocephin is the first day that repeat blood cultures are sterile. The patient has a pacemaker in place and has had surgery on his spine at which time metal was put on the spine. MEDICATIONS: The patient is on Rocephin as mentioned above, this is day 2 of treatment with it. PHYSICAL EXAMINATION: Vital signs: Temperature is 98, pulse 88, respirations 13, blood pressure is 102/68. General: This is an ill-appearing elderly male. He does not appear to be in any acute distress. Head, Eyes, Ears, Nose and Throat: The patient is intubated. He has an orotracheal tube in place and a nasogastric tube in place. There is no drainage from the nose or ears. Neck: Appeared to be no pain in the neck when I passively moved the patient's head. Lungs: Clear to auscultation. Cardiovascular: Heart rate is irregular. Abdomen: Distended. It does not seem to be tender. Neurologic: The patient is obtunded. He does not have a tremor. He did not respond to verbal stimuli. Integument: I looked at the patient's peripheral IV sites and there is no erythema. LAB AND RADIOLOGY: CBC-WBC 12.55, hgb 10.9. platelets 265K. Creatinine-0.8. GFR->60. Chest [id number] pulmonary edema and pleural effusions ASSESSMENT AND PLAN: Patient has streptococcal bacteremia. I plan to treat the patient with Rocephin for a total of 6 weeks because his pacemaker and/or metal in his spine could become infected while the patient was bacteremic. Following the 6 week treatment, I will plan to put the patient on an oral antibiotic such as Keflex in a reduced dose for an indefinite period of time and the purpose of that would be hopefully not to have an infection flare-up. COMORBIDITY: The is elderly. He also has diabetes mellitus, obesity, congestive heart failure, and atrial fibrillation. cc: MD DEEPTHI Muñiz
--- NOTE | 2018-08-06 09:20 | GENERAL SURGERY PROGRESS NOTE ---
DATE: 08/06/2018 Reviewed notes from other physicians. Patient seems to be doing okay. He still failed a spontaneous breathing trial. His Luis A-Dobbs drain is in place, it still does not have any bile. From a surgical point of view just continue supportive care. cc: Raffy Quiroz MD
[2018-08-06] MEDS: ASPIRIN EC PO SCH (09:24)
[2018-08-06] MEDS: CLINIMIX E 4.25%-5% SOLUTION 1,000 ML IV SCH ×3 (09:25→20:31)
[2018-08-06] MEDS: LOVENOX SUBQ SCH (09:26)
[2018-08-06] MEDS ORDERED: MORPHINE IV ONE ×2 (09:46→10:01)
[2018-08-06] MEDS: FENTANYL 1,000 MICROGM in NS 80 ML IV SCH (10:46)
[2018-08-06] MEDS ORDERED: LASIX IV ONE (14:11)
[2018-08-06] MEDS: LANOXIN IV SCH (14:43)
[2018-08-06] MEDS: CARDIZEM PO SCH ×2 (14:44→20:31)
[2018-08-06] MEDS ORDERED: SODIUM CHLORIDE 0.9% INJ PRN (16:16)
[2018-08-06] MEDS: PROTONIX IV SCH (17:36)
[2018-08-06] MEDS: NEOSPORIN OINTMENT TUBE TOP SCH ×2 (17:37→20:31)
--- NOTE | 2018-08-06 18:02 | PROGRESS NOTE ---
DATE: 08/06/2018 SUBJECTIVE: The patient is currently intubated. Family present in the room. OBJECTIVE: Vital signs: Temperature is 98.1 degrees, pulse 105, respiratory rate 16, blood pressure 96/66, oxygen saturation is 93%. HEENT: Atraumatic, normocephalic. Cardiovascular system: S1, S2. Respiratory system: Has evidence of good air entry bilaterally. Abdomen: Soft, nontender. Drain present in the region of the right upper quadrant. Extremities: No evidence of significant edema. Central nervous system: The patient is currently intubated as well as sedated. LABS: WBC is 4.55, hematocrit is 33.5, with a platelet count of 265,000. Sodium is 145, potassium 3.5, chloride is 105, bicarb 27, BUN is 34, creatinine 0.8. ASSESSMENT AND PLAN: 1. Acute respiratory failure. Continue ventilator support. Pulmonary team following. 2. Staphylococcal bacteremia. Continue antibiotics as recommended by ID. 3. Atrial fibrillation with rapid ventricular rate. Continue rate controlling agent. Cardiology following. 4. Subhepatic collection. Drain in place. Surgery team following. 5. Diabetes mellitus. Continue blood sugar monitoring as well as sliding scale insulin. 6. Deep vein thrombosis prophylaxis. Lovenox. 7. Gastrointestinal prophylaxis. PPI. cc: Cuong Smith MD
--- NOTE | 2018-08-07 00:08 | PULMONOLOGY PROGRESS NOTE ---
DATE: 08/06/2018 SUBJECTIVE: The patient's sedation was withheld this morning. He becomes agitated with tachypnea. His medications were reviewed and he was on significant morphine dosing prior to admission. The patient received two 10 mg doses of morphine and settled down significantly and would actually make eye contact with the examiner. OBJECTIVE: Vital Signs: The patient has been afebrile for the last 24 hours. Blood pressure 131/85, heart rate 100, respiratory rate 18, oxygen saturation 97%. HEENT: Pupils are equal. Oropharynx appears clear. Neck: Supple. Chest: Reveals coarse breath sounds bilaterally. Cardiac: S1, S2. Irregular rhythm. Abdomen: Obese and soft with diminished bowel sounds. Extremities: Reveal +1 peripheral edema. LABORATORIES: Chest x-ray reveals some bilateral effusions/infiltrates, which is slightly worse compared to 08/05/2018. White blood count 12.6, hemoglobin 10.9, platelet 265,000. Sodium 145, potassium 3.5, chloride 105, bicarbonate 27, BUN 34, creatinine 0.8. Arterial blood gas reveals a pH of 7.46, pCO2 of 44, PO2 of 126. IMPRESSION: A 67-year-old with 1. Acute abdomen. 2. Bibasilar pneumonia. 3. Hypoxic respiratory failure. 4. Chronic renal insufficiency. 5. Obesity. 6. Diabetes mellitus. 7. Profound muscle weakness. When patient is aroused, he will lift his arms but is too weak to reach for his endotracheal tube. DISCUSSION: A 67-year-old with problem list outlined above. In addition, I suspect that he may be having a component of narcotic withdrawal. He is receiving propofol but he is getting almost no narcotics. I will initiate fentanyl in an attempt to confirm this hypothesis. The patient's white blood count continues to decline and he remains afebrile. PLAN: 1. Attempt to balance intake and output. 2. Continue daily weaning trials. 3. Add scheduled dose of fentanyl to his Diprivan. 4. Continue ProcalAmine and lipids, realizing he may require TPN this weekend. 5. Continue antibiotics per Infectious Disease. 6. Consider followup CT scan of the abdomen and pelvis this weekend if he develops fevers or leukocytosis. Time Spent in Critical Care Management cc: Zi Duarte MD [facility]
[2018-08-07] MEDS: DIPRIVAN 1% 1,000 MG/100 ML BOTTLE IV SCH ×3 (00:23→08:52)
[2018-08-07] MEDS: ROCEPHIN 2 GM in NS 50 ML IV SCH ×2 (00:24→13:29)
[2018-08-07] MEDS: HUMULIN R SUBQ SCH ×6 (01:24→21:08)
[2018-08-07] MEDS: CLINIMIX E 4.25%-5% SOLUTION 1,000 ML IV SCH ×4 (04:10→21:25)
[2018-08-07] MEDS: CARDIZEM PO SCH ×3 (04:11→21:00)
[2018-08-07 04:24] LABS: BLOOD TYPE ARTERIAL; SAMPLE BLOOD
[2018-08-07 04:25] LABS: ALLEN TEST YES; BE 8.3 mmoll (-3.0-3.0); HCO3-(ACT) 31.4 mmoll (20.0-26.0); METHB 0.6 % (0.0-1.5); O2(CT) 10.8 mL/dL (15.0-23.0); O2HB 95.1 % (95.0-99.0); PCO2(98.6) 45 mmHg (35-45); PO2(98.6) 79 mmHg (60-100); SRATE 12 BPM; TVOL 500 mL; pH(98.6) 7.47 (7.35-7.45)
[2018-08-07 04:26] LABS: MODALITY VENTILATOR
[2018-08-07] MEDS: MORPHINE IV PRN ×2 (05:54→22:34)
[2018-08-07] MEDS: SYNTHROID IV SCH (06:15)
[2018-08-07] MEDS: FENTANYL 1,000 MICROGM in NS 80 ML IV SCH (06:24)
[2018-08-07 06:50] LABS: HEMATOCRIT 34.4 % (42.0-52.0); HEMOGLOBIN 10.9 g/dL (14.0-18.0); MCH 28.2 PG (27-31); MCHC 31.7 g/dL (33-37); MCV 88.9 FL (81-99); MPV 13.2 FL (7.4-10.4); RBC 3.87 XMIL (4.7-6.1); WBC 13.59 X1000 (4.8-10.8)
--- NOTE | 2018-08-07 07:19 | Diag Imaging Result Doc PS360 ---
EXAM: CHEST-PORTABLE 08/07/2018 HISTORY: respiratory failure TECHNIQUE: AP portable at 0512 COMMENT: There is an endotracheal tube with its tip at thoracic inlet. There are bilateral pleural effusions and basilar atelectasis. This has improved slightly since 08/06/2018. There is cardiomegaly. IMPRESSION: Slightly improved pleural effusions and basilar atelectasis. Electronically signed by Dany Rodriges 08/07/2018 7:16 AM
--- NOTE | 2018-08-07 07:44 | GENERAL SURGERY PROGRESS NOTE ---
DATE: 08/07/2018 SUBJECTIVE: The patient seems to be doing about the same. He is getting a little restless and tachypneic. Reviewed notes from other physicians. He still has not been able to get extubated. Discussed case with the nurses. MARIELLA drain is in place and has had decreased output note of which has been bilious. At this point continue current treatment. We may want to consider a CT scan this weekend. We could give him contrast down his NG tube and see if there is any extravasation to suggest a duodenal perforation, but otherwise continue current treatment. The nurses did point out some blisters where he has probably had some tape. At this point I recommend just avoiding tape as best as possible and just watching the blisters. cc: Raffy Quiroz MD
[2018-08-07 07:49] LABS: AGAP 12; ALB/GLOB RATIO 0.6; ALBUMIN 2.4 g/dL (3.5-5.0); ALKALINE PHOSPHATASE 95 U/L (32-122); BUN 43 mg/dL (8-22); CALCIUM 9.2 mg/dL (8.8-10.2); CHLORIDE 104 mmol/L (98-107); COSMO 305; CREATININE 0.8 mg/dL (0.7-1.2); ESTIMATED GFR > 60; GLUCOSE 227 mg/dL (70-104); GOT 30 U/L (10-34); GPT 10 U/L (10-44); POTASSIUM 4.3 mmol/L (3.5-5.1); SODIUM 144 mmol/L (136-145); TCO2 28 mmol/L (25-35); TOTAL BILIRUBIN 0.33 mg/dL (0.20-1.00); TOTAL PROTEIN 6.6 g/dL (6.3-8.3)
[2018-08-07] MEDS: NEOSPORIN OINTMENT TUBE TOP SCH ×2 (09:34→21:09)
[2018-08-07] MEDS: LANOXIN IV SCH (09:34)
[2018-08-07] MEDS: ASPIRIN EC PO SCH (09:35)
[2018-08-07] MEDS: LOVENOX SUBQ SCH (09:35)
[2018-08-07 12:47] LABS: ALLEN TEST YES; BE 6.9 mmoll (-3.0-3.0); BLOOD TYPE ARTERIAL; HCO3-(ACT) 30.2 mmoll (20.0-26.0); METHB 0.5 % (0.0-1.5); O2(CT) 15.4 mL/dL (15.0-23.0); O2HB 93.3 % (95.0-99.0); PCO2(98.6) 43 mmHg (35-45); PO2(98.6) 70 mmHg (60-100); SAMPLE BLOOD; SAO2 94.1 % (95.0-100.0); THB 11.7 g/dL (11.5-17.4); pH(98.6) 7.47 (7.35-7.45)
[2018-08-07 12:48] LABS: MODALITY VENTILATOR
--- NOTE | 2018-08-07 12:53 | PROGRESS NOTE ---
DATE: 08/07/2018 SUBJECTIVE: The patient is currently intubated as well as sedated. Has family in the room. OBJECTIVE: Vital signs are as follows: Temperature is 98.3, pulse is 80, respiratory rate 16, blood pressure is 114/83, oxygen saturation is 97%. HEENT: Atraumatic and normocephalic. Does have an ET tube as well as NG tube in place. Cardiovascular System: S1, S2. Respiratory System: Has evidence of good air entry bilaterally. Abdomen: Soft, nontender. Has a drain in the region of the right upper quadrant. Extremities: No evidence of significant edema. Central Nervous System: The patient is currently sedated. LABORATORY DATA: WBC is 13.59, hematocrit is 34.4, with a platelet count of 261. AB.47/45/39/96%. Chemistry: Sodium 144, potassium 4.3, chloride is 104, bicarbonate 28, BUN is 43, creatinine 0.8. ASSESSMENT AND PLAN: 1. Acute respiratory failure. Plans for weaning/extubation have not been successful. The patient remains on ventilator support. Pulmonary team following. He is currently sedated using a combination of fentanyl as well as propofol. 2. Streptococcus anginosus bacteremia. The patient is currently receiving Rocephin 2 g IV q.12 and being followed by the Infectious Disease team. 3. Atrial fibrillation with rapid ventricular rate. Continue rate-controlling agent. The patient is currently on Cardizem 60 via NG q.8 hours as well as digoxin. The patient is being followed by the Cardiology team. 4. Subhepatic collection. Drain in the region of the right upper quadrant still collecting serosanguineous material. The patient is being followed by the Surgical team. I believe the drain can be discontinued when this substance stops collecting. 5. Leukocytosis probably related to bacteremia but also concerned about collection in the region of the subhepatic area. The patient may require a CT scan of the abdomen and pelvis to further evaluate that region. 6. Diabetes mellitus. Continue to monitor blood sugar levels and maintain patient on sliding scale insulin. 7. Deep venous thrombosis, Lovenox. 8. Gastrointestinal prophylaxis, proton pump inhibitor. cc: Cuong Smith MD
--- NOTE | 2018-08-07 14:48 | CARDIOLOGY PROGRESS NOTE ---
DATE: 08/07/2018 PROBLEM LIST: 1. Status post biliary surgery. 2. Severe aortic stenosis. 3. Chronic atrial fibrillation. 4. Pulmonary venous congestion. OBJECTIVE: Vital Signs: Blood pressure 149/82. Pulse rate 100, irregular. Respiratory rate 40. General: The patient was just extubated. Cardiovascular: First and second heart sounds were heard. There was ejection systolic murmur. Respiratory: Scattered wheeze. Abdomen: Recent surgery. LABORATORY EXAMINATION: Revealed sodium 144, potassium 4.3, BUN 43, creatinine 0.8. WBC 13.5, RBC 3.87, hemoglobin 10.9, hematocrit 34, platelet count of 261,000. Chest x-ray suggestive of pulmonary venous congestion. CURRENT MEDICATIONS: 1. Cardizem 60 mg p.o. q.8h hourly. 2. Enteric-coated aspirin. 3. Digoxin. 4. Lovenox 40 mg subcu daily. 5. Levothyroxine 25. 6. Zofran. 7. Ceftriaxone. 8. Protonix. The patient's I's and O's are equal. He has been positive with fluid overload. He has been receiving Lasix. We will plan to give him Lasix which he will receive today. Otherwise I have not made any other changes to medication. I would recommend continuing all of the medications. We will follow hospital course. cc: Venkat Bassett MD
[2018-08-07] MEDS: LASIX IV SCH (14:56)
--- NOTE | 2018-08-07 15:46 | GASTROENTEROLOGY PROGRESS NOTE ---
DATE: 08/07/2018 SUBJECTIVE: The patient is continuing on mechanical ventilation. They have been unable to wean him off. His is at the bedside. The patient has a MARIELLA in place with some serosanguineous drainage. OBJECTIVE: Vital signs: Temperature 98.3, pulse 107, respirations 19, blood pressure 124/79. General: The patient is sedated on mechanical ventilation. LABORATORY: Hematology: WBC 13.59, hemoglobin 10.9, hematocrit 34.4, MCV 88.9, platelet 261. Chemistry: Sodium 144, potassium 4.3, chloride 104, CO2 28, BUN 43, creatinine 0.8, glucose 227. ASSESSMENT AND PLAN: 1. Recent cholecystectomy, recent laparoscopy with subhepatic drain placement. 2. Sepsis, following with Infectious Disease. 3. History of endoscopic retrograde cholangiopancreatography with common bile duct stent in place. We will continue to follow. He will need stent removed once he is stable. This will most likely be done as an outpatient when able. GI will be available as needed. I have discussed this case with Dr. Russell. Dictated by DANIEL Worthington for Immanuel Russell MD cc: DANIEL Winslow MD
[2018-08-07] MEDS: PROTONIX IV SCH (16:19)
--- NOTE | 2018-08-07 20:24 | INFECTIOUS DISEASE PROGRESS NO ---
DATE: 08/07/2018 PRESENT ILLNESS: The patient has streptococcal bacteremia. He has pulmonary infiltrates, but more likely these are due to pulmonary venous congestion rather than pneumonia. The patient has a pacemaker in place and has had metal put in on his spine, and both of these sites could have become infected hematogenously. MEDICATIONS: This is the third day of treatment with Rocephin in a dose of 2 g IV every 12 hours. The first day of treatment with Rocephin is the first day that the patient's repeat blood cultures are sterile. PHYSICAL EXAMINATION: Vital Signs: Temperature is 98.8 degrees, pulse 97, respirations 18, blood pressure 139/68. General: This is an obese, elderly male. He is extubated and has an oxygen mask on. He apparently can hear my spoken words and see near objects. The patient's orotracheal tube has been removed. Neck: There is no pain in his neck when he moves his head. Lungs: Clear to auscultation. Cardiovascular: Heart rate is irregular. Abdomen: Soft and nontender. Patient has a right-sided drain in place. Neurologic: The patient is alert. He moved his extremities to request. LAB AND X-RAY: CBC today shows a white count of 13,590, hemoglobin 10.9, platelet count 261,000. Blood gases show a pH of 7.47, a pO2 of 70, and a pCO2 of 43. Creatinine is 0.8. GFR is greater than 60. Liver function studies are normal. Sputum grew out a normal kimberly. Blood cultures first became negative on 08/04/2018. Chest x-ray shows improvement in both infiltrates. ASSESSMENT AND PLAN: Patient has streptococcal bacteremia. I plan to continue Rocephin for a total of 6 weeks because his pacemaker and/or metal in his spine could have become infected hematogenously. Following the intravenous antibiotics, I probably will place the patient on Keflex in a reduced dose, such as 500 mg every 12 hours, for an indefinite period of time with the hope that it will suppress any remaining infection. COMORBIDITIES: The patient is elderly. He also is a diabetic. He is obese, and he has congestive heart failure and atrial fibrillation. cc: Jovan Vasquez MD
[2018-08-08] MEDS: MORPHINE IV PRN ×5 (01:33→22:43)
[2018-08-08] MEDS: ROCEPHIN 2 GM in NS 50 ML IV SCH ×2 (01:34→13:35)
[2018-08-08] MEDS: HUMULIN R SUBQ SCH ×6 (01:46→20:26)
[2018-08-08 04:56] LABS: ALLEN TEST YES; BE 7.5 mmoll (-3.0-3.0); BLOOD TYPE ARTERIAL; HCO3-(ACT) 30.7 mmoll (20.0-26.0); METHB 0.6 % (0.0-1.5); O2(CT) 15.1 mL/dL (15.0-23.0); O2HB 95.2 % (95.0-99.0); PCO2(98.6) 44 mmHg (35-45); PO2(98.6) 88 mmHg (60-100); SAMPLE BLOOD; SAO2 96.6 % (95.0-100.0); THB 11.2 g/dL (11.5-17.4); pH(98.6) 7.47 (7.35-7.45)
[2018-08-08 04:58] LABS: MODALITY COOL AEROSOL
[2018-08-08] MEDS: CARDIZEM PO SCH ×3 (05:21→20:09)
[2018-08-08 06:14] LABS: HEMATOCRIT 35.1 % (42.0-52.0); HEMOGLOBIN 11.3 g/dL (14.0-18.0); MCH 28.2 PG (27-31); MCHC 32.2 g/dL (33-37); MCV 87.5 FL (81-99); MPV 12.9 FL (7.4-10.4); RBC 4.01 XMIL (4.7-6.1); RDW 13.6 % (11.5-14.5); WBC 13.14 X1000 (4.8-10.8)
[2018-08-08] MEDS: SYNTHROID IV SCH (06:23)
[2018-08-08 06:38] LABS: AGAP 14; ALB/GLOB RATIO 0.5; ALBUMIN 2.3 g/dL (3.5-5.0); ALKALINE PHOSPHATASE 93 U/L (32-122); BUN 34 mg/dL (8-22); CALCIUM 9.4 mg/dL (8.8-10.2); CHLORIDE 104 mmol/L (98-107); COSMO 305; CREATININE 0.7 mg/dL (0.7-1.2); ESTIMATED GFR > 60; GLUCOSE 288 mg/dL (70-104); GOT 28 U/L (10-34); GPT 9 U/L (10-44); POTASSIUM 3.8 mmol/L (3.5-5.1); SODIUM 144 mmol/L (136-145); TCO2 26 mmol/L (25-35); TOTAL BILIRUBIN 0.62 mg/dL (0.20-1.00)
--- NOTE | 2018-08-08 08:01 | Diag Imaging Result Doc PS360 ---
EXAM: CHEST-PORTABLE INDICATION: respiratory failure TECHNIQUE: One view COMPARISON: 08/07/2018 FINDINGS: There has been interval removal of the NG tube and ET tube. Similar to the previous study, inspiration is suboptimal. Subsegmental atelectasis at the lung bases is approximately stable. No new consolidation is identified. Cardiac silhouette is stable. IMPRESSION: Interval removal of ET tube and NG tube. Essentially stable chest, otherwise. Electronically signed by Mart Javier 08/08/2018 7:59 AM
[2018-08-08] MEDS: LOVENOX SUBQ SCH (08:04)
[2018-08-08] MEDS: LANOXIN IV SCH (08:04)
[2018-08-08] MEDS: LASIX IV SCH (08:04)
[2018-08-08] MEDS: ASPIRIN EC PO SCH (08:05)
[2018-08-08] MEDS: CLINIMIX E 4.25%-5% SOLUTION 1,000 ML IV SCH ×2 (08:14→20:26)
[2018-08-08] MEDS: NEOSPORIN OINTMENT TUBE TOP SCH ×2 (09:00→21:45)
--- NOTE | 2018-08-08 10:59 | CARDIOLOGY PROGRESS NOTE ---
DATE: 08/08/2018 CHIEF COMPLAINT: Shortness of breath, abdominal pain, sepsis, respiratory failure, irregular heartbeat. SUBJECTIVE: Mr. Echevarria was extubated yesterday. Today, he is more awake and interacting more with his . He has some abdominal discomfort. Otherwise, he seems to be breathing with ease. He is on a partial rebreather mask right now. OBJECTIVE: Vital signs: Blood pressure is 144/82, temperature is 96.7, respirations 20, pulse 87. He is awake, follows some simple commands. HEENT is unremarkable. Chest: Diminished breath sounds diffusely. Heart sounds are irregular without gallop or murmur. There is a systolic murmur over the aortic area. Abdomen is distended, tender. A drain is coming out of the right upper quadrant. Extremities showed good pulses. No edema. Neurologic: Follows simple commands. DIAGNOSTIC DATA: Sodium is 144, potassium 3.8, BUN is 34, creatinine 0.7. Chest x-ray done today shows interval removal of ET tube. Stable chest. Subsegmental atelectasis. IMPRESSION: 1. The patient has permanent atrial fibrillation. 2. Sick sinus syndrome, status post permanent pacemaker. 3. History of aortic stenosis. Last echocardiogram on 08/01/2018 shows valve area of 0.8 cm sq, mean gradient of 50 mmHg. This is severe aortic stenosis. 4. Status post laparotomy with placement of subhepatic drain and drainage of subhepatic fluid collection. 5. History of dilated bile duct with stricture and some evidence of liver fibrosis/cirrhosis, per biopsy done in 06/2018. 6. Septicemia with positive blood cultures for Streptococcus anginosus, which is sensitive to penicillin and basically all antibiotics. 7. Respiratory failure which has improved. RECOMMENDATIONS: At this time, we will follow him clinically. Cardiac shelton, he is stable. I do not suggest any changes at this point. We will see him as needed. cc: Billy Barraza MD
--- NOTE | 2018-08-08 12:33 | PROGRESS NOTE ---
DATE: 08/08/2018 Mr. Jorge A Echevarria is post laparoscopic cholecystectomy per Dr. Quiroz. He has also had a common bile duct stent placed per Dr. Russell. He underwent diagnostic laparoscopy with placement of a drain by Dr. Tran. He has been in the ICU intubated but he is now extubated, and his NG tube is out. His abdomen is mostly soft and there is no bile coming out of his MARIELLA drain. So clinically I feel that he is improving. His heart rate is 87, he is in atrial fibrillation. His blood pressure is 144/82, O2 saturation 98%. He is on oxygen. He awakens but is kind of sedated because of some pain medicine he has received. He has a Chapin catheter tube in place. Urine output has been adequate. His white blood cell count is 13, hematocrit is 35%. BUN and creatinine are 34 and 0.7. His sugar has been a little bit elevated. His liver function tests are all within normal limits. PLAN: We will continue supportive care. I have left the MARIELLA drain in place for now. Hopefully, we can transition from IV nutrition to nutrition p.o. cc: Hina Odonnell MD
--- NOTE | 2018-08-08 12:49 | PROGRESS NOTE ---
DATE: 08/08/2018 SUBJECTIVE: This morning, Mr. Echevarria refers to be doing a lot better. He was successfully extubated yesterday and is currently on Venturi mask. The was at the bedside at the time of the encounter. OBJECTIVELY: Vital signs: Blood pressure is 144/82, pulse of 87, respirations 20, temperature is degrees 96.7 degrees. General: Mr. Echevarria is a 67-year-old gentleman. He is in bed. No distress. HEENT: Mucosa is pink and moist. Anicteric. Acyanotic. Neck: Supple. Chest: Good air entry bilateral. Cardiovascular: Regular rate and rhythm. Abdomen: Soft, distended. There is a MARIELLA drain in the right upper quadrant. Extremities: No pedal edema. Chapin catheter is in place. Central Nervous System: The patient is sleepy and drowsy, but easily arousable and follows basic commands. LABORATORY DATA: Patient intake and output. Urine output was 3325, MARIELLA drain was 150 in 24 hours. The patient is still positive balance of 2791. IMAGING: A chest x-ray this morning shows interval removal of ET tube and NG tube, essentially stable chest. MICROBIOLOGY DATA: Blood cultures have come back 48 hours negative. Sputum culture also has shown no growth. ASSESSMENT: 1. Acute abdomen with subphrenic abscess status post diagnostic laparoscopy with placement of subhepatic drain. 2. Septic shock with streptococcal anginosus bacteremia. The patient is currently on ceftriaxone. Subsequent blood cultures have been negative. 3. Atrial fibrillation with rapid ventricular response. Currently rate controlled on Cardizem. Cardiology is on board. 4. Severe aortic stenosis with some regurgitation. Cardiology is on board. I think this will need to be re-evaluated at a later date. 5. Acute kidney injury, resolved. 6. Chronic liver disease secondary to steatohepatitis. cc: MD DEEPTHI Mendes
[2018-08-08] MEDS: PROTONIX IV SCH (13:35)
[2018-08-09] MEDS: ROCEPHIN 2 GM in NS 50 ML IV SCH ×2 (00:58→12:32)
[2018-08-09] MEDS: HUMULIN R SUBQ SCH ×6 (00:59→20:14)
[2018-08-09] MEDS: MORPHINE IV PRN ×3 (03:18→22:06)
[2018-08-09] MEDS: CARDIZEM PO SCH ×3 (04:42→20:06)
[2018-08-09 05:06] LABS: ALLEN TEST YES; BE 6.3 mmoll (-3.0-3.0); BLOOD TYPE ARTERIAL; HCO3-(ACT) 29.8 mmoll (20.0-26.0); O2(CT) 18.9 mL/dL (15.0-23.0); O2HB 95.4 % (95.0-99.0); PO2(98.6) 109 mmHg (60-100); SAMPLE BLOOD; pH(98.6) 7.41 (7.35-7.45)
[2018-08-09 05:24] LABS: HEMATOCRIT 33.7 % (42.0-52.0); HEMOGLOBIN 10.9 g/dL (14.0-18.0); MCH 28.7 PG (27-31); MCHC 32.3 g/dL (33-37); MCV 88.7 FL (81-99); MPV 12.5 FL (7.4-10.4); RBC 3.8 XMIL (4.7-6.1); RDW 13.7 % (11.5-14.5); WBC 11.38 X1000 (4.8-10.8)
[2018-08-09 05:28] LABS: MODALITY CANNULA
[2018-08-09 05:29] LABS: PCO2(98.6) 51 mmHg (35-45)
[2018-08-09 05:44] LABS: AGAP 8; ALB/GLOB RATIO 0.5; ALBUMIN 2.4 g/dL (3.5-5.0); ALKALINE PHOSPHATASE 104 U/L (32-122); BUN 37 mg/dL (8-22); CALCIUM 9.2 mg/dL (8.8-10.2); CHLORIDE 103 mmol/L (98-107); COSMO 301; CREATININE 0.6 mg/dL (0.7-1.2); ESTIMATED GFR > 60; GLUCOSE 226 mg/dL (70-104); GOT 44 U/L (10-34); GPT 11 U/L (10-44); POTASSIUM 3.9 mmol/L (3.5-5.1); SODIUM 143 mmol/L (136-145); TCO2 32 mmol/L (25-35); TOTAL BILIRUBIN 0.44 mg/dL (0.20-1.00); TOTAL PROTEIN 6.8 g/dL (6.3-8.3)
[2018-08-09] MEDS: SYNTHROID IV SCH (06:08)
[2018-08-09] MEDS: CLINIMIX E 4.25%-5% SOLUTION 1,000 ML IV SCH ×3 (06:18→20:05)
--- NOTE | 2018-08-09 07:49 | Diag Imaging Result Doc PS360 ---
EXAM: CHEST-PORTABLE INDICATION: respiratory failure TECHNIQUE: One view COMPARISON: 08/08/2018 FINDINGS: Inspiration remains suboptimal. Bibasilar subsegmental atelectasis is grossly stable. No new consolidation is identified. Cardiac silhouette is stable. IMPRESSION: Stable chest. Electronically signed by Mart Javier 08/09/2018 7:47 AM
[2018-08-09] MEDS: LASIX IV SCH (08:43)
[2018-08-09] MEDS: LOVENOX SUBQ SCH (08:43)
[2018-08-09] MEDS: ASPIRIN EC PO SCH (08:43)
[2018-08-09] MEDS: LANOXIN IV SCH (08:45)
[2018-08-09] MEDS: NEOSPORIN OINTMENT TUBE TOP SCH ×2 (09:06→20:09)
--- NOTE | 2018-08-09 10:13 | PROGRESS NOTE ---
DATE: 08/09/2018 SUBJECTIVE: Mr. Echevarria continues to improve daily. He has only serous drainage from his wound Oswaldo tube. He is more awake and looks stronger. Is cooperative. OBJECTIVE: His heart rate is 83, blood pressure 123/75, O2 saturation 99%. He is afebrile. He has had a bowel movement. His abdomen is mostly soft. DIAGNOSTIC STUDIES: Sugars still are little bit elevated. His white blood cell count is improving, it went from 13 to 11, hematocrit is 34%. BUN 37 and creatinine 0.6. Liver function tests are essentially normal. PLAN: We will start him on full liquids and we will increase his activity and continue maximum pulmonary physiotherapy. cc: Hina Odonnell MD
[2018-08-09] MEDS: PROTONIX IV SCH (12:32)
--- NOTE | 2018-08-09 15:06 | PROGRESS NOTE ---
DATE: 08/09/2018 SUBJECTIVE: Patient has now been extubated and seemed to be doing fairly well. OBJECTIVE: Vital signs: Temperature 97.7 degrees, pulse 83, respiratory 20, blood pressure 142/76, oxygen saturation 97%. HEENT: Atraumatic, normocephalic. Cardiovascular: S1, S2. Respiratory: Has evidence of good air entry bilaterally. Abdomen: Soft, nontender. No masses felt. Extremities: No evidence of edema. Central nervous system: No obvious focal deficit noted. LABS: WBC 11.38, hematocrit 33.7 with a platelet count of 274,000 . ABG 7.41/51/109/ 97, sodium is 142, potassium 3.9, chloride is 103, bicarb 32, BUN is 37, creatinine 0.6. X-ray chest shows no new consolidation is bibasilar subsegmental atelectasis. ASSESSMENT AND PLAN: 1. Acute respiratory failure. Patient has now been extubated. Maintain patient on supplemental oxygen. Pulmonary following. 2. Streptococcus anginosus bacteremia. Continue antibiotics as recommended by ID. 3. Atrial fibrillation. Continue rate controlling agent, Cardiology following. 4. Subhepatic collection. Surgery following. 5. Leukocytosis. This seem to be improving. Continue current antibiotic regimen, follow up on patient's white count. 6. Diabetes mellitus. Continue to monitor blood sugar levels and maintain patient on sliding scale insulin. 7. Deep vein thrombosis prophylaxis Lovenox. 8. Gastrointestinal prophylaxis PPI. cc: Cuong Smith MD
[2018-08-09] MEDS: ANTIVERT PO SCH (20:06)
[2018-08-09] MEDS: NEURONTIN PO SCH (20:06)
[2018-08-09] MEDS ORDERED: EFFEXOR XR PO SCH (21:00)
[2018-08-10] MEDS: ROCEPHIN 2 GM in NS 50 ML IV SCH ×2 (00:43→12:05)
[2018-08-10] MEDS: HUMULIN R SUBQ SCH ×7 (00:44→23:45)
[2018-08-10] MEDS: CARDIZEM PO SCH ×3 (04:30→21:28)
[2018-08-10 04:48] LABS: ALLEN TEST YES; BE 6.8 mmoll (-3.0-3.0); BLOOD TYPE ARTERIAL; HCO3-(ACT) 30.2 mmoll (20.0-26.0); O2HB 93.9 % (95.0-99.0); PCO2(98.6) 47 mmHg (35-45); PO2(98.6) 84 mmHg (60-100); SAMPLE BLOOD; SAO2 95.3 % (95.0-100.0); THB 10.5 g/dL (11.5-17.4); pH(98.6) 7.44 (7.35-7.45)
[2018-08-10 04:50] LABS: MODALITY CANNULA
[2018-08-10] MEDS: SYNTHROID IV SCH (05:59)
[2018-08-10 06:42] LABS: HEMATOCRIT 33.7 % (42.0-52.0); MCH 28.4 PG (27-31); MCHC 32.6 g/dL (33-37); MCV 87.1 FL (81-99); MPV 12.6 FL (7.4-10.4); RBC 3.87 XMIL (4.7-6.1); RDW 13.3 % (11.5-14.5); WBC 12.93 X1000 (4.8-10.8)
[2018-08-10 07:13] LABS: AGAP 11; ALB/GLOB RATIO 0.6; ALBUMIN 2.4 g/dL (3.5-5.0); ALKALINE PHOSPHATASE 150 U/L (32-122); BUN 29 mg/dL (8-22); CALCIUM 9.2 mg/dL (8.8-10.2); CHLORIDE 99 mmol/L (98-107); COSMO 285; CREATININE 0.6 mg/dL (0.7-1.2); ESTIMATED GFR > 60; GLUCOSE 186 mg/dL (70-104); GOT 57 U/L (10-34); GPT 14 U/L (10-44); POTASSIUM 3.8 mmol/L (3.5-5.1); SODIUM 137 mmol/L (136-145); TCO2 27 mmol/L (25-35); TOTAL BILIRUBIN 0.44 mg/dL (0.20-1.00); TOTAL PROTEIN 6.5 g/dL (6.3-8.3)
--- NOTE | 2018-08-10 07:14 | GENERAL SURGERY PROGRESS NOTE ---
DATE: 08/10/2018 Patient was extubated over the weekend. He seems to be doing fine, seems to be breathing. He has been off the ventilator for what sounds like close to 48 hours without any kind of respiratory distress. His Luis A-Dobbs drain still has serosanguineous output but the output quantity has increased a little bit. May just watch it for another 24 hours. Overall, he is making good improvement. His labs seem to be trending in the correct direction. His ABG this morning looks pretty good for the most part. We will continue to monitor and continue supportive care. cc: Raffy Quiroz MD
--- NOTE | 2018-08-10 07:26 | Diag Imaging Result Doc PS360 ---
EXAM: CHEST-PORTABLE INDICATION: respiratory failure TECHNIQUE: One view COMPARISON: 08/09/2018 FINDINGS: Somewhat low lung volumes and mild bibasilar subsegmental atelectasis is essentially stable. No new consolidation is identified. Cardiac silhouette is stable. IMPRESSION: Stable chest. Electronically signed by Mart Javier 08/10/2018 7:24 AM
[2018-08-10] MEDS: LOVENOX SUBQ SCH (08:07)
[2018-08-10] MEDS: LASIX IV SCH (08:07)
[2018-08-10] MEDS: ASPIRIN EC PO SCH (08:07)
[2018-08-10] MEDS: CLINIMIX E 4.25%-5% SOLUTION 1,000 ML IV SCH ×2 (08:07→20:25)
[2018-08-10] MEDS: NEURONTIN PO SCH ×2 (08:07→21:28)
[2018-08-10] MEDS: LANOXIN IV SCH (08:08)
[2018-08-10] MEDS: EFFEXOR XR PO SCH ×2 (08:09→21:29)
[2018-08-10] MEDS: NEOSPORIN OINTMENT TUBE TOP SCH ×2 (08:12→21:28)
--- NOTE | 2018-08-10 10:50 | PROGRESS NOTE ---
DATE: 08/10/2018 SUBJECTIVE: Patient is resting comfortably in bed. Not in any obvious distress. OBJECTIVE: Vital Signs: Temperature 97.4 degrees, pulse is 78, respirations 26, blood pressure 172/81, oxygen saturation is 97%. HEENT: Atraumatic, normocephalic. Cardiovascular System: S1, S2. Respiratory System: Has evidence of good air entry bilaterally. Abdomen: Soft, nontender. No masses felt. Extremities: No evidence of edema. Central Nervous System: No obvious focal deficits noted. Labs: WBC is 12.93, hematocrit is 33.0, platelet count is 289,000. ABG, 7.44/47/84/95.3%. Sodium is 137, potassium 3.8, chloride is 99, bicarb 27, BUN is 29, creatinine is 0.6. X-ray of the chest shows mild bibasilar subsegmental atelectasis. ASSESSMENT AND PLAN: 1. Acute respiratory failure. The patient is now extubated. Maintain patient on supplemental oxygen as needed. Pulmonary team is following. 2. Streptococcus anginosus bacteremia. Continue antibiotics as recommended by infectious disease. 3. Atrial fibrillation. Continue rate controlling agent. 4. Subhepatic collection. Surgery following. 5. Hypothyroidism. Continue levothyroxine. 6. Diabetes mellitus. Continue blood sugar monitoring as well as sliding scale insulin. 7. Deep vein thrombosis prophylaxis. Lovenox. 8. Gastrointestinal prophylaxis. Proton pump inhibitor. 9. Disposition. The patient can be transferred out to the floor. cc: Cuong Smith MD MTDD
[2018-08-10] MEDS: PROTONIX IV SCH (12:05)
--- NOTE | 2018-08-10 14:09 | INFECTIOUS DISEASE PROGRESS NO ---
DATE: 08/10/2018 PRESENT ILLNESS: The patient has a streptococcal bacteremia. The patient has a pacemaker in place and also metal in his spine and both of these structures could have become infected hematogenously. MEDICATIONS: This is day 6 of treatment with Rocephin in a dose of 2 gram IV every 12 hours. The first day of treatment with Rocephin is the first day that the patient's repeat blood cultures were sterile. PHYSICAL EXAMINATION: Vital Signs: Temperature is 97.4 degrees, pulse 78m respirations 26, blood pressure 172/81. General: This is an obese, elderly male. He is alert and is in no acute distress. Head, eyes, ears, nose, and throat: He can hear my spoken words and see near objects. He does not have any white patches on his tongue neck. The patient also has a nasogastric tube in place. Neck: The patient does not have any pain in his neck when he moves his head. The patient has a jugular venous catheter in place on the right side. The site is not erythematous or draining. Thorax: Patient has a pacemaker present on the left side. The site is not swollen or erythematous. Lungs: Clear to auscultation. Cardiovascular: Heart rate is irregular. Abdomen: Soft and nontender. A drain is in place on the right side. Neurologic: The patient is alert. He carries on a coherent conversation. He can move his extremities. LAB AND X-RAY: CBC shows a white count of 12,930, hemoglobin 11, platelet count 289,000, creatinine is 0.6, GFR is greater than 60, alkaline phosphatase is 150. Chest x-ray shows bibasilar atelectasis. ASSESSMENT AND PLAN: Patient has streptococcal bacteremia. As mentioned earlier, he will require 6 weeks of Rocephin in case his pacemaker and/or metal in his spine have become infected hematogenously. Following the IV antibiotic I will probably place the patient on Keflex in a reduced dose such as 500 mg p.o. every 12 hours for a prolonged period of time in order to suppress any remaining infection. COMORBIDITIES: The patient is elderly and he also is a diabetic. He is obese. He has congestive heart failure and atrial fibrillation. cc: Jovan Vasquez MD MTDD
[2018-08-10] MEDS: PROTONIX PO SCH (16:00)
[2018-08-10] MEDS: SYNTHROID PO SCH (17:15)
[2018-08-10] MEDS: ANTIVERT PO SCH (21:28)
[2018-08-10] MEDS: LIPITOR PO SCH (21:28)
--- NOTE | 2018-08-10 21:53 | PULMONOLOGY PROGRESS NOTE ---
DATE: 08/10/2018 SUBJECTIVE: The patient is awake and alert. He appears to be stronger than at his last visit on . He has been successfully extubated. His voice is clear. He has no increased work of breathing. OBJECTIVE: Vital Signs: The patient has been afebrile for the last 24 hours. BP 123/88, heart rate 93, respiratory rate 26, oxygen saturation 98% on 2 L per nasal cannula. HEENT: Pupils are equal and reactive. Oropharynx appears clear. Neck: Is supple. Chest: Reveals shallow inspiration bilaterally. Cardiac: S1, S2. Abdomen: Obese and soft with diminished bowel sounds. Extremities: Reveal trace to 1+ peripheral edema. LABORATORIES: White blood count 12.93, hemoglobin 11.0. Chest x-ray reveals shallow inspiration with basilar atelectasis. Arterial blood gas reveals a pH of 7.44, pCO2 44, PO2 of 84. IMPRESSION: 1. A 67-year-old with acute abdomen with subphrenic abscess. 2. Bibasilar pneumonia/atelectasis. 3. Acute hypoxemic respiratory failure. 4. Chronic renal insufficiency. 5. Obesity. 6. Diabetes mellitus. 7. Generalized weakness. PLAN: 1. Continue to balance intake and output. 2. Continue bronchial hygiene. 3. P.o. intake per General Surgery. 4. Promote mobilization of the patient with physical therapy and out of bed. cc: Zi Duarte MD
[2018-08-10] MEDS: MORPHINE IV PRN (23:30)
[2018-08-11] MEDS: ROCEPHIN 2 GM in NS 50 ML IV SCH ×2 (00:05→12:07)
[2018-08-11] MEDS: HUMULIN R SUBQ SCH ×5 (04:48→19:53)
[2018-08-11] MEDS: CARDIZEM PO SCH ×3 (04:48→20:32)
[2018-08-11 05:32] LABS: HEMATOCRIT 33.3 % (42.0-52.0); HEMOGLOBIN 11.2 g/dL (14.0-18.0); MCH 28.5 PG (27-31); MCHC 33.6 g/dL (33-37); MCV 84.7 FL (81-99); MPV 12.6 FL (7.4-10.4); RBC 3.93 XMIL (4.7-6.1); RDW 13.2 % (11.5-14.5); WBC 12.63 X1000 (4.8-10.8)
[2018-08-11 05:46] LABS: AGAP 9; ALB/GLOB RATIO 0.7; ALBUMIN 2.5 g/dL (3.5-5.0); ALKALINE PHOSPHATASE 120 U/L (32-122); BUN 23 mg/dL (8-22); CALCIUM 9.2 mg/dL (8.8-10.2); CHLORIDE 100 mmol/L (98-107); COSMO 280; CREATININE 0.5 mg/dL (0.7-1.2); ESTIMATED GFR > 60; GLUCOSE 180 mg/dL (70-104); GOT 28 U/L (10-34); GPT 11 U/L (10-44); POTASSIUM 3.9 mmol/L (3.5-5.1); SODIUM 136 mmol/L (136-145); TCO2 27 mmol/L (25-35); TOTAL BILIRUBIN 0.35 mg/dL (0.20-1.00); TOTAL PROTEIN 6.3 g/dL (6.3-8.3)
[2018-08-11] MEDS ORDERED: ULTRAM PO PRN (05:49)
[2018-08-11] MEDS: SYNTHROID PO SCH (06:10)
--- NOTE | 2018-08-11 08:02 | Diag Imaging Result Doc PS360 ---
CHEST-PORTABLE - 08/11/2018 INDICATION: respiratory failure COMPARISON: 08/10/2018 FINDINGS: Stable critically low lung volumes. Stable bibasilar atelectasis. No new infiltrates. Heart size remains normal. IMPRESSION: Critically low lung volumes. Electronically signed by Juancho Taylor 08/11/2018 8:00 AM
[2018-08-11] MEDS: CLINIMIX E 4.25%-5% SOLUTION 1,000 ML IV SCH ×2 (08:03→20:32)
[2018-08-11] MEDS: LOFIBRA PO SCH (08:08)
[2018-08-11] MEDS: EFFEXOR XR PO SCH ×2 (08:08→20:32)
[2018-08-11] MEDS: ASPIRIN EC PO SCH (08:09)
[2018-08-11] MEDS: NEURONTIN PO SCH ×2 (08:10→20:32)
[2018-08-11] MEDS: LANOXIN IV SCH (08:10)
[2018-08-11] MEDS: LOVENOX SUBQ SCH (08:10)
[2018-08-11] MEDS: LASIX IV SCH (08:10)
[2018-08-11] MEDS: NEOSPORIN OINTMENT TUBE TOP SCH ×2 (08:16→20:31)
--- NOTE | 2018-08-11 13:02 | GENERAL SURGERY PROGRESS NOTE ---
DATE: 08/11/2018 Patient was moved from the ICU to the CICU. He is doing well. MARIELLA drain has had minimal output so removed it without difficulty, placed 4x4s over the wound. From a surgical point of view, he is doing okay. At this point, we will kind of follow peripherally. I think he can have his diet advanced as tolerated at this point. cc: Raffy Quiroz MD
--- NOTE | 2018-08-11 13:15 | INFECTIOUS DISEASE PROGRESS NO ---
DATE: 08/11/2018 PRESENT ILLNESS: The patient has a streptococcal bacteremia. He also has a pacemaker in place, and metal in his spine, and both of these structures could have become infected while the patient was bacteremic. MEDICATIONS: This is the seventh day of treatment with Rocephin at a dose of 2 grams IV every 12 hours. Day 1 of treatment was the first day that the patient's blood cultures turned negative. PHYSICAL EXAMINATION: Vital Signs: Temperature is 97.9 degrees, pulse 60, respirations 18, blood pressure 134/91. General: This is an obese, elderly male. He is alert today. He can move his extremities. He told me that yesterday, he was able to sit in a chair. He could stand, and he took a few steps. HEENT: He can hear my spoken words and see near objects. He does not have any white coating of his tongue. There are no tubes in his nose. Lungs: Clear to auscultation. Cardiovascular: Heart rate is irregular. Thorax: The patient has a pacemaker on the left side. The site is not swollen or tender. Abdomen: Soft and nontender. The drain in the right side has been removed. Neurologic: The patient is alert. As mentioned above, he can move his extremities. There is no tremor. IMAGING AND LABORATORY DATA: An x-ray done yesterday of the chest shows low lung volumes and mild bibasilar subsegmental atelectasis. No consolidation was seen. The patient's CBC for today shows a white count of 12,630, hemoglobin 11.2, and platelet count 268,000. Creatinine is 0.5. GFR is greater than 30. ASSESSMENT AND PLAN: The patient has streptococcal bacteremia. This is day 7 of treatment with Rocephin. I plan to treat for 5 more weeks, and following that, put the patient on a low dose of Keflex because, as mentioned above, his pacemaker and/or metal in his spine could have become infected while the patient was having positive blood cultures. COMORBIDITIES: The patient is elderly and he is a diabetic. He also is obese. He has congestive heart failure and atrial fibrillation. cc: Jovan Vasquez MD
[2018-08-11] MEDS: PROTONIX PO SCH (15:02)
--- NOTE | 2018-08-11 16:50 | PROGRESS NOTE ---
DATE: 08/11/2018 SUBJECTIVE: Today Mr. Echevarria referred to be doing a lot better. No fever. No chills. Minimal abdominal pain. No shortness of breath. was at the bedside at the time of the encounter. OBJECTIVE: Vital signs: Blood pressure is 129/80, pulse of 91, respirations 24, temperature 98.0 degrees. Patient was saturating 98%. General: Mr. Echevarria is a 67-year-old gentleman. He was in bed. No distress. HEENT: Mucosa is pink and moist. Anicteric. Acyanotic. Neck: Supple. Chest: Clear to auscultation. No crepitations. No rhonchi. Cardiovascular: Regular rate and rhythm. Abdomen: Soft. Minimally distended. Nontender. Bowel sounds present. Extremities: No pedal edema. PATIENT TRANSPORT OFFICER: Patient is awake, alert, and oriented. LABORATORY DATA: WBC is 12.62, hemoglobin is 11.2, platelet count of 268,000. Chemistry is also reviewed, completely unremarkable. Repeat blood cultures have been 5 days negative. ASSESSMENT: 1. Acute abdomen secondary to subphrenic abscess. The patient is status post diagnostic laparoscopy with subhepatic drain placement. This has subsequently been removed this morning. 2. Septic shock with streptococcal anginosus bacteremia. The patient is on ceftriaxone. Subsequent blood cultures have been negative. The patient is being treated for 6 weeks because of hardware. 3. Atrial fibrillation with rapid ventricular response during the hospital course. Rate is controlled. 4. Severe aortic stenosis with some regurgitation. Cardiology is on board. 5. Acute kidney injury, resolved. 6. Chronic liver disease secondary to fatty liver. 7. Hypothyroidism. Patient will continue on levothyroxine. 8. Diabetes mellitus, controlled. cc: Dale Pack MD
[2018-08-11] MEDS: LIPITOR PO SCH (20:32)
[2018-08-11] MEDS: ANTIVERT PO SCH (20:32)
--- NOTE | 2018-08-11 22:01 | PULMONOLOGY PROGRESS NOTE ---
DATE: 08/11/2018 SUBJECTIVE: The patient is awake, alert and interactive. His reports he is stronger in the morning, but does have some confusion toward the evening. OBJECTIVE: The patient has been afebrile for the last 24 hours. Blood pressure 136/73, heart rate 89, respiratory rate 20, oxygen saturation 96% on 2 L per nasal cannula. Incentive spirometry volumes are approximately 1 L.HEENT: Pupils are equal and reactive. Oropharynx appears clear. Neck is supple. Chest reveals shallow breath sounds bilaterally with bibasilar crackles. Cardiac exam: S1, S2. Abdomen is obese and soft. Extremities reveal trace edema. LABORATORY DATA: White blood count 12.63, hemoglobin 11.2, platelet count 268,000. Sodium 136, potassium 3.9, chloride 100, bicarbonate 27, BUN 23, creatinine 0.5. IMPRESSION: A 67-year-old with: 1. Acute hypoxemic respiratory failure. 2. Neuromuscular weakness with bibasilar infiltrate/atelectasis. 3. Obesity. 4. Chronic renal insufficiency. 5. Acute abdomen, status post drainage of a subphrenic abscess. 6. Diabetes mellitus. 7. Fluctuating mental status/encephalopathy. PLAN: 1. Continue incentive spirometry. 2. Continue physical therapy. 3. Continue to balance intake and output. 4. P.o. intake per Dr. Raffy Quiroz. 5. Consider removing Chapin catheter 08/12/2018. cc: Zi Duarte MD
[2018-08-12] MEDS: HUMULIN R SUBQ SCH ×6 (00:06→20:45)
[2018-08-12] MEDS: ROCEPHIN 2 GM in NS 50 ML IV SCH ×2 (00:09→12:08)
[2018-08-12] MEDS: MORPHINE IV PRN (00:19)
[2018-08-12] MEDS: CARDIZEM PO SCH (04:56)
[2018-08-12 05:45] LABS: HEMATOCRIT 33.2 % (42.0-52.0); MCH 28.6 PG (27-31); MCHC 33.1 g/dL (33-37); MCV 86.5 FL (81-99); MPV 12.8 FL (7.4-10.4); RBC 3.84 XMIL (4.7-6.1); RDW 13.6 % (11.5-14.5); WBC 12.07 X1000 (4.8-10.8)
[2018-08-12] MEDS: SYNTHROID PO SCH ×2 (06:01→09:26)
[2018-08-12 06:10] LABS: AGAP 7; ALB/GLOB RATIO 0.7; ALBUMIN 2.6 g/dL (3.5-5.0); ALKALINE PHOSPHATASE 118 U/L (32-122); BUN 20 mg/dL (8-22); CALCIUM 9.1 mg/dL (8.8-10.2); CHLORIDE 102 mmol/L (98-107); COSMO 280; CREATININE 0.6 mg/dL (0.7-1.2); ESTIMATED GFR > 60; GLUCOSE 154 mg/dL (70-104); GOT 26 U/L (10-34); GPT 11 U/L (10-44); SODIUM 137 mmol/L (136-145); TCO2 28 mmol/L (25-35); TOTAL BILIRUBIN 0.31 mg/dL (0.20-1.00); TOTAL PROTEIN 6.4 g/dL (6.3-8.3)
--- NOTE | 2018-08-12 07:03 | INFECTIOUS DISEASE PROGRESS NO ---
DATE: 08/12/2018 PRESENT ILLNESS: The patient has a streptococcal bacteremia. His pacemaker and metal in his spine could have become infected hematogenously while the patient was bacteremic. MEDICATIONS: This is the eighth day of treatment with Rocephin at a dose of 2 grams IV every 12 hours. Day 1 of treatment was the first day that the patient's blood cultures turned negative. PHYSICAL EXAMINATION: Vital Signs: Temperature is 97.9 degrees, pulse 88, respirations 20, blood pressure 134/80. General: This is an obese, elderly male. He is alert. He is in no acute distress. HEENT: He can hear my spoken words and see near objects. He does not have any white patches in his mouth. Neck: There is no pain in the neck when he moves his neck or head. Lungs: Clear to auscultation. Cardiovascular: Heart rate is irregular. The patient has a systolic murmur. Thorax: The patient has a pacemaker on the left side of the chest. The site is not swollen, erythematous, or tender. Abdomen: Soft and nontender. His drain that was previously on the right side was removed 2 days ago. Neurologic: The patient is alert. He can move his extremities. He is able to stand and take a few steps. IMAGING AND LABORATORY DATA: There is no radiographic study scheduled for today. Lab tests done today show CBC with a white count of 12,070, hemoglobin 11, platelet count 264,000. There is no BMP for today. As mentioned above, there is no radiographic study for today. ASSESSMENT AND PLAN: The patient has a streptococcal bacteremia. I plan to treat the patient for a total of 6 weeks in case his pacemaker and/or metal in his spine became infected while the patient was bacteremic. Following the 6 weeks of Rocephin treatment, I will put the patient on a low dose of an oral antibiotic, most probably Keflex 500 mg every 12 hours on a chronic basis. I have put in for the patient to have a PICC placed, and also I have put in to consult [facility] to supply the patient's IV Rocephin at home. If the patient does not have coverage for the Rocephin at home, then I will have him come to the outpatient clinic once a day to get his injection of Rocephin. COMORBIDITIES: The patient is elderly and he is a diabetic. He also is obese. He has congestive heart failure and atrial fibrillation. cc: Jovan Vasquez MD
[2018-08-12 07:13] LABS: INR 1.24; PROTIME 16.5 Seconds (11.0-16.0)
--- NOTE | 2018-08-12 07:34 | Diag Imaging Result Doc PS360 ---
CHEST-PORTABLE - 08/12/2018 INDICATION: respiratory failure COMPARISON: 08/11/2018 FINDINGS: Stable pacemaker. Stable critically low lung volumes. No new infiltrates. IMPRESSION: No change from prior. Electronically signed by Juancho Taylor 08/12/2018 7:31 AM
[2018-08-12] MEDS: NEURONTIN PO SCH ×2 (08:04→20:54)
[2018-08-12] MEDS: EFFEXOR XR PO SCH ×2 (08:04→20:55)
[2018-08-12] MEDS: ASPIRIN EC PO SCH (08:04)
[2018-08-12] MEDS: LASIX IV SCH (08:04)
[2018-08-12] MEDS: LOFIBRA PO SCH (08:04)
[2018-08-12] MEDS: LANOXIN IV SCH (08:04)
[2018-08-12] MEDS: LOVENOX SUBQ SCH (08:05)
[2018-08-12] MEDS: CLINIMIX E 4.25%-5% SOLUTION 1,000 ML IV SCH (08:05)
[2018-08-12] MEDS ORDERED: OXY IR PO PRN (09:23)
[2018-08-12] MEDS: NEOSPORIN OINTMENT TUBE TOP SCH ×2 (09:26→20:55)
[2018-08-12] MEDS ORDERED: LANOXIN PO SCH (09:30)
--- NOTE | 2018-08-12 11:41 | PROGRESS NOTE ---
DATE: 08/12/2018 SUBJECTIVE: Today Mr. Echevarria refers to be feeling a whole lot better. was at the bedside at the time of the encounter. Denies any new complaints. Mr. Echevarria has been seen today by Infectious Disease, and they plan to get a PICC line and get the patient up to bed and work with physical therapy and hopefully get him discharged tomorrow. OBJECTIVELY: His current vitals: Blood pressure is 133/76, pulse rate of 79, respiration is 22, temperature is 98.2 degrees. On general exam, Mr. Echevarria is a 67-year-old gentleman. He is in bed. He is not in any cardiopulmonary distress. Mucosa is pink and moist. Anicteric. Acyanotic. Neck is supple. Chest: Good air entry bilateral. There were no crepitations and no rhonchi. Cardiovascular: Regular rate and rhythm. No murmurs. Gastrointestinal: Abdomen is soft, nontender. Bowel sounds present. Extremities: No pedal edema. Genitourinary: Unremarkable. Central Nervous System: Patient is awake, alert, and oriented. There is no focal neurological deficit. DIAGNOSTIC STUDIES: WBC is 12.07, hemoglobin is 11.0, platelet count 264,000. Chemistry is also reviewed and completely normal. MEDICATION: The patient's current medications have all been reviewed. He is still on ceftriaxone 2 g every 12 hours. ASSESSMENT AND PLAN: 1. Septic shock with Streptococcus anginosus bacteremia, improved. Subsequent blood cultures have been negative. Patient is on ceftriaxone, and there is a plan for a total of 6 weeks' treatment. 2. Acute abdomen secondary to subphrenic abscess. The patient is status post diagnostic laparoscopy with subhepatic drain placement. The pigtail catheter has been removed, and patient is doing well. 3. Atrial fibrillation with rapid ventricular response. Rate is controlled. 4. Severe aortic stenosis with some regurgitation. Cardiology is on board. I think at some point the patient will need to be evaluated for that as well on outpatient basis. 5. Acute kidney injury, resolved. 6. Chronic liver disease secondary to fatty liver. 7. Hypothyroidism. We will continue with levothyroxine. 8. Diabetes mellitus is controlled. 9. General weakness and deconditioning. Physical Therapy has been consulted. In general, I think Mr. Echevarria is doing a whole lot better. Subsequent blood cultures have been negative so there is a plan for a PICC line today. Once that is done, the patient will be able to be discharged, hopefully tomorrow, with home health and home IV antibiotics arrangement. cc: Dale Pack MD
[2018-08-12] MEDS: CARDIZEM CD PO SCH (12:08)
[2018-08-12] MEDS: PROTONIX PO SCH (16:23)
[2018-08-12] MEDS: ANTIVERT PO SCH (20:54)
[2018-08-12] MEDS: LIPITOR PO SCH (20:54)
[2018-08-12] MEDS: TOPROL XL PO SCH (20:55)
[2018-08-12] MEDS ORDERED: ZYLOPRIM PO SCH (21:00)
[2018-08-12] MEDS ORDERED: NEURONTIN PO SCH (21:00)
--- NOTE | 2018-08-12 22:51 | PULMONOLOGY PROGRESS NOTE ---
DATE: 08/12/2018 SUBJECTIVE: The patient is awake, alert, and conversant. He appears to be getting stronger. His reports that he was able to stand and take a few steps before he became unsteady earlier today. OBJECTIVE: Vital signs: The patient has been afebrile for the last 24 hours. Blood pressure 121/60, heart rate 63, respiratory rate 19, oxygen saturation 99% on room air. HEENT: Pupils are equal and reactive. Oropharynx appears clear. Neck: Supple. Chest: Reveals shallow breath sounds bilaterally. Cardiac Exam: S1-S2. Abdomen: Obese and soft. Extremities: Reveal trace edema. LABORATORIES: Chest x-ray reveals shallow inspiration without new infiltrates. Sodium 137, potassium 4, chloride 102, bicarbonate 28, BUN 20, creatinine 0.5. IMPRESSION: A 67-year-old with: 1. Acute hypoxemic respiratory failure. 2. Generalized neuromuscular weakness. 3. Obesity. 4. Chronic renal insufficiency. 5. Acute abdomen status post drainage of subphrenic abscess. 6. Diabetes mellitus. 7. Encephalopathy with continued improvement. PLAN: 1. Continue incentive spirometry. 2. Continue physical therapy. 3. Continue antibiotics per Infectious Disease. 4. Continue bronchial hygiene. cc: Zi Duarte MD
[2018-08-13] MEDS: HUMULIN R SUBQ SCH ×3 (00:32→12:02)
[2018-08-13] MEDS: ROCEPHIN 2 GM in NS 50 ML IV SCH ×2 (00:33→13:42)
[2018-08-13 06:03] LABS: HEMATOCRIT 34.4 % (42.0-52.0); HEMOGLOBIN 11.1 g/dL (14.0-18.0); MCH 28.3 PG (27-31); MCHC 32.3 g/dL (33-37); MCV 87.8 FL (81-99); MPV 13.1 FL (7.4-10.4); RBC 3.92 XMIL (4.7-6.1); RDW 14.3 % (11.5-14.5); WBC 12.99 X1000 (4.8-10.8)
[2018-08-13 06:04] LABS: INR 1.13; PROTIME 15.5 Seconds (11.0-16.0)
[2018-08-13 06:26] LABS: AGAP 10; ALB/GLOB RATIO 0.7; ALBUMIN 2.7 g/dL (3.5-5.0); ALKALINE PHOSPHATASE 117 U/L (32-122); BUN 22 mg/dL (8-22); CALCIUM 9.3 mg/dL (8.8-10.2); CHLORIDE 103 mmol/L (98-107); COSMO 282; CREATININE 0.7 mg/dL (0.7-1.2); ESTIMATED GFR > 60; GLUCOSE 113 mg/dL (70-104); GOT 28 U/L (10-34); GPT 11 U/L (10-44); POTASSIUM 3.9 mmol/L (3.5-5.1); SODIUM 139 mmol/L (136-145); TCO2 26 mmol/L (25-35); TOTAL BILIRUBIN 0.34 mg/dL (0.20-1.00); TOTAL PROTEIN 6.5 g/dL (6.3-8.3)
--- NOTE | 2018-08-13 07:09 | Diag Imaging Result Doc PS360 ---
EXAM: CHEST-PORTABLE 08/13/2018 HISTORY: respiratory failure TECHNIQUE: AP portable at 0535 COMMENT: There is ill-defined opacity in the left lower lobe which was probably present on the previous study of 08/12/2018. Otherwise are has been no significant change. IMPRESSION: Atelectasis versus pneumonia left lower lobe. Electronically signed by Dany Rodriges 08/13/2018 7:07 AM
[2018-08-13] MEDS ORDERED: XARELTO PO SCH ×2 (09:00)
[2018-08-13] MEDS ORDERED: COZAAR PO SCH (09:00)
[2018-08-13] MEDS ORDERED: LANOXIN PO SCH (09:00)
[2018-08-13] MEDS ORDERED: LASIX PO SCH (09:00)
[2018-08-13] MEDS: TOPROL XL PO SCH (09:25)
[2018-08-13] MEDS: CARDIZEM CD PO SCH (09:25)
[2018-08-13] MEDS: EFFEXOR XR PO SCH (09:25)
[2018-08-13] MEDS: NEURONTIN PO SCH (09:25)
[2018-08-13] MEDS: ASPIRIN EC PO SCH (09:25)
[2018-08-13] MEDS: LOFIBRA PO SCH (09:25)
[2018-08-13] MEDS: SYNTHROID PO SCH (09:25)
[2018-08-13] MEDS: NEOSPORIN OINTMENT TUBE TOP SCH (09:27)
[2018-08-13 12:01] VITALS: BP 116/67
[2018-08-13] MEDS ORDERED: NS 250 ML ONE (14:14)
--- NOTE | 2018-08-13 15:14 | Diag Imaging Result Doc PS360 ---
CHEST-PORTABLE - 08/13/2018 INDICATION: PICC placement COMPARISON: 08/13/2018 FINDINGS: There is a left PICC line. The tip appears to be in the mid SVC at the level of the right pulmonary artery. Stable left-sided dual-chamber pacemaker. The lungs are clear. Heart size is normal. No pneumothorax or pleural effusion. IMPRESSION: Good left PICC line placement in the SVC. Electronically signed by Juancho Taylor 08/13/2018 3:11 PM
--- NOTE | 2018-08-14 05:10 | DISCHARGE SUMMARY ---
ADMISSION DATE: 07/31/2018 DISCHARGE DATE: 08/13/2018 DISPOSITION: Home with home health. FOLLOW-UP: 1. Dr. Audelia Newman. 2. Dr. Vasquez. INVASIVE PROCEDURES: Done during this admission, a diagnostic laparoscopy with placement of a subhepatic drain, done by Dr. Tran on 08/01/2018. IMAGING STUDIES OF SIGNIFICANCE: 1. A CT scan of the abdomen and pelvis was done initially, which showed very small amount of free air and free fluid in the abdomen. There was also a CBD stent that has migrated and is nearly completely out of the CBD, mostly in the duodenum. 2. Multiple chest x-rays were done. MICROBIOLOGY DATA OF SIGNIFICANCE: Blood culture was positive for Streptococcus anginosus, 2/2. This was adequately treated. Repeat blood cultures were negative. CARDIOLOGY: A TTE was done, which showed normal ejection fraction. They did, however, make mention of a severe aortic stenosis. A ARIANNE was recommended, however, this will be followed up by Cardiology. ADMISSION DIAGNOSES: 1. Atrial fibrillation with rapid ventricular response. 2. Shock. 3. Acute on chronic respiratory failure. 4. Diabetes mellitus. DIAGNOSIS AT THE TIME OF DISCHARGE: 1. Septic shock on presentation with Streptococcal anginosus bacteremia. Patient has been treated adequately and repeat blood cultures in the hospital have been negative. He is currently on ceftriaxone. Infectious Disease is on board and there is a plan for a total of 6 weeks antimicrobial therapy. PICC line will be placed for outpatient antimicrobial therapy. 2. Acute abdomen on presentation secondary to subphrenic abscess. The patient is status post diagnostic laparoscopy with subhepatic drain placement. The pigtail catheter was ultimately removed. The patient is clinically stable. 3. Atrial fibrillation with rapid ventricular response on presentation, resolved. 4. Severe aortic stenosis with some regurgitation. Cardiology is on board. They will follow up with the patient on outpatient basis. 5. Acute kidney injury, resolved. 6. Chronic liver disease secondary to fatty liver. 7. Hypothyroidism. 8. Diabetes mellitus. 9. Generalized weakness and deconditioning. 10. Chronic pain syndrome. The patient is on multiple pain medications and also under Pain Management Team. DISCHARGE MEDICATIONS: 1. Fenofibrate 160 p.o. q.a.m. 2. Losartan 25 mg p.o. daily. 3. Morphine 60 mg p.o. q.8h. 4. Metoprolol 100 p.o. b.i.d. 5. Gabapentin 600 p.o. b.i.d. 6. Atorvastatin 40 mg p.o. at bedtime. 7. Linagliptin 5 mg p.o. daily. 8. Lasix 40 mg p.o. daily. 9. Allopurinol 100 mg p.o. at bedtime. 10. Levothyroxine 50 mcg p.o. daily. 11. Oxycodone 30 mg p.o. daily. 12. Venlafaxine 1 tablet, 150 p.o. daily. 13. Diltiazem 240 p.o. daily. 14. Rivaroxaban 20 mg p.o. q.a.m. 15. Aspirin 81 mg daily. PRESENTING COMPLAIN: Shortness of breath. HISTORY OF PRESENT COMPLAINT: Mr. Echevarria is a 67-year-old male who is known to have atrial fibrillation, congestive heart failure, on chronic Xarelto therapy, presented to the emergency department because of shortness of breath, was found to have a saturation of 70%. The patient was put on BiPAP and was admitted initially to [facility]. However, because of needing higher level of care, he was transferred to [facility]. Initially, he was found to be hypotensive with a blood pressure that went down to about 77/56, so he was sent to the ICU. HOSPITAL COURSE: Mr. Echevarria's imaging studies revealed some concern at the gallbladder foci. He looked septic, so broad-spectrum IV antibiotics was initially started, and ID was consulted. Surgery was also consulted. Patient was seen by Dr. Tran. The plan was made to take him to OR to explore. This was successfully done laparoscopically and a MARIELLA drain was put in the gallbladder fossa. Per the surgery report, it appeared there was some purulence at the gallbladder fossa. Postoperatively Mr. Echevarria continues to improve. He was subsequently transferred from the ICU to medical floor. During the hospital course, he also developed atrial fibrillation with RVR and Cardiology was consulted. Medications were titrated and his heart rate got better. Mr. Echevarria also received multiple sessions of physical therapy. He seems to be doing a lot better for the past 2 days. His repeat blood cultures have been negative. He is tolerating his diet and he has been having regular bowel movement, so we think Mr. Echevarria is stable for discharge. We are going to get a PICC line in and, hopefully, once that is done, he can be discharged home with home health, and also with [facility] for IV antibiotic. All the discharge instructions have been discussed with him. The was at the bedside at the time of the encounter, they both voiced understanding. VITAL SIGNS: This morning, his current vitals blood pressure is 124/60, pulse of 76, respiration is 18, temperature is 98.4 degrees. The patient is saturating 95% on room air. Clinically stable. TIME SPENT: For discharge is 37 minutes. cc: MD Jovan Mendes MD Marlin D. Gill, MD Luis N. Villanueva, MD
== END 2018-08-13 16:32 | disposition home health service (06) | DRG 862 ==
LOC: ED 18:18 → SUATTDRO 23:10 → ICU 23:10 → 3S 08-10 16:43 → 4N 08-13 02:40
PROVIDERS: ATTEND Internal Medicine
CPT/HCPCS: 36569; 51702; 71010; 71045; 71250; 74000; 74018; 74176; 80053; 80101; 80301; 80307; 80324; 80345; 80346; 80353; 80358; 80361; 80365; 81001; 82805; 82948; 83036; 83605; 83735; 83880; 83992; 84100; 84443; 84484; 85025; 85027; 85610; 87040; 87070; 87077; 87186; 87205; 93005; 93306; 94002; 94003; 94660; 94761; 94799; 96365; 96366; 96368; 96375; 97110; 97116; 97162; 97530; 99285; 99291; A9270; C8929; C9113; G0431; G0434; G0479; G0480; J0330; J0696; J0878; J1160; J1170; J1650; J1940; J1956; J2185; J2270; J2370; J3010; J3370; J7030; J7050; J7120; P9047; Q9957; S0020; S0030; S0164; XXXXX